=== PATIENT | female | born 1935 | race Caucasian/White ===

== ENCOUNTER 2020-04-20 21:45 | Inpatient (IN) | payer MEDICARE, OTHER, SELFPAY ==
[2020-04-20 21:46] VITALS: BP 128/68; PULSE 67; RESP 20; O2SAT 90; BMI 22.4
[2020-04-20 21:50] VITALS: PULSE 64; RESP 21; O2SAT 96
--- NOTE | 2020-04-20 21:51 | ECG_ITS ---
[facility] Test Date: 2020-04-20 Pat Name: Aleja Souza Department: Room: Gender: Female [employer]: : [id number] Requested By: Reed Sapp Order Number: [id number] Sophia MD: Lisa Zimmerman M.D. Measurements Intervals [place] Rate: 64 P: 25 [place]: 214 QRS: -10 QRSD: 92 T: 230 QT: 414 QTc: 429 Interpretive Statements SINUS RHYTHM WITH FIRST DEGREE AV BLOCK NONSPECIFIC T-WAVE ABNORMALITY Compared to ECG 03/16/2018 11:38:23 T-wave abnormality now present Sinus bradycardia no longer present Myocardial infarct finding no longer present Electronically Signed On 04-21-2020 20:30:13 CDT by Lisa Zimmerman M.D. [id number]
--- NOTE | 2020-04-20 21:51 | XR_ITS ---
WS: [id number] Portable AP upright chest, 04/20/2020 Clinical Data: sob Comparison: Portable chest, 03/16/2018. Findings: There is an opacity in the right lower lobe which may represent consolidation from pneumoni a. There is volume loss of the right lung. No nodules, masses or effusions are seen. The heart is sli ghtly enlarged. The pulmonary vascularity is not increased. No pneumothorax is seen. The aortic arch and descending aorta show calcification and tortuosity. Monitor leads on the chest wall. XR/XR chest 1V portable [id number] Impression: 1. Possible right lower lobe pneumonia and recommend repeat PA and lateral ches t in one to 2 days. 2. Cardiomegaly and atherosclerosis.
--- NOTE | 2020-04-20 21:54 | W.ED.SOB ---
Documented by User: Reed Sapp MD 04/20/20 21:55 HPI - SOB/Dyspnea General: Chief Complaint: Shortness of Breath/Dyspnea Stated Complaint: RESP DISTRESS Time Seen by Provider: 04/20/20 21:48 Source: patient and EMS Mode of arrival: EMS Limitations: no limitations History of Present Illness: HPI Narrative: 84-year-old female who is here from a local long-term. Patient had shortness of breath and was desaturating there. EMS states they arrived she was in the 70s and had some altered mental status. Patient was placed on CPAP and has been improving. Patient is able to answer my questions here but is still and quite distressed and unable to speak very many words due to her distress. She has been afebrile at long-term. She has not had a cough. No known sick contacts. Patient is a DNR. Associated symptoms: Deny abdominal pain, chest pain, fever(s), nausea or vomiting Review of Systems Const: Denies: fever(s), chills, body aches or change in appetite Eyes: Denies: blurry vision or eye discomfort ENMT: Denies: throat pain or dental pain Card: Denies: chest pain Resp: Reports: dyspnea and wheezing GI: Denies: abdominal pain, nausea, vomiting or diarrhea : Denies: dysuria Musc: Denies: neck pain or back pain Skin/Breast: Denies: rash Neuro: Denies: headache(s) Psych: Denies: depression [place]/Lymph: Denies: easy bruising All/Imm: Denies: urticaria PFSH ED PFSH: Medical History Depression DNR (do not resuscitate) Dyslipidemia History of biliary stent insertion It was removed later on Hypertension Irritable bowel syndrome Junctional rhythm Migraine ST elevation PA (STEMI) Was treated medically July 2015, Inferior wall PA TIA (transient ischemic attack) Uterine prolapse Surgical History History of hysterectomy For uterine prolapse Cystocele, rectocele Hx of cholecystectomy Family History Other CAD (coronary artery disease) Diabetes Hypertension Social History Smoking and tobacco status: never smoked Alcohol intake: never Substance/Drug Use: never Housing: Assisted Living Facility Physical Exam Const: COMMON NORMALS: patient oriented x3 GENERAL APPEARANCE: in distress HENMT: COMMON NORMALS: normocephalic and atraumatic HEAD & SCALP: normocephalic and atraumatic Eye: COMMON NORMALS: Equal, round and reactive pupils present and EOMs intact bilaterally PUPIL: Yes Equal, round and reactive pupils present Neck/C-Spine: COMMON NORMALS: full ROM and supple Chest: COMMONS NORMALS: normal inspection of the chest and normal palpation of entire chest wall Resp: EFFORT & INSPECTION: Yes tachypneic and Yes respiratory distress AUSCULTATION: wheezes Cardio: COMMON NORMALS: regular rate, regular rhythm and No murmurs present (Cardio) RATE: regular rate RHYTHM: regular rhythm GI: COMMON NORMALS: Normal to inspection, nondistended, normoactive bowel sounds present, Soft to palpation, non-tender and no masses PALPATION: Yes Soft to palpation Extremity: COMMON NORMALS: normal to inspection and full ROM Neuro: COMMON NORMALS: patient oriented x3, moves all extremities and no focal motor deficits Psych: COMMON NORMALS: mental status grossly normal, Normal thought process present and cooperative THOUGHT PROCESS: Normal thought process present Skin: COMMON NORMALS: no rashes or lesions noted and no wounds GENERAL SKIN EXAM: no rashes or lesions noted Course Vital Signs: Vital signs: Vital Signs Temperature 97.2 F L 04/21/20 02:00 Pulse Rate 63 04/21/20 02:17 Respiratory Rate 16 04/21/20 02:00 Blood Pressure 127/73 04/21/20 02:00 Pulse Oximetry 91 04/21/20 02:00 MDM - SOB/Dyspnea Lab Data: Labs: Lab Results 04/20/20 04/20/20 04/20/20 Range/Units 21:58 21:58 22:03 WBC 13.8 H (4.0-10.0) 10^3/ uL RBC 3.95 L (4.1-5.3) 10^6/u L Hgb 11.4 L (11.5-15.3) g/dL Hct 35.1 L (37.0-47.0) % MCV 88.9 (81-99) fL MCH 28.9 (28.0-34.0) pg MCHC 32.5 (30.0-36.0) g/dL RDW 14.1 (12.1-15.1) % Plt Count 243 (130-400) 10^3/c mm MPV 11.4 H (7.4-10.4) fL Neut % (Auto) 86.5 % Lymph % (Auto) 6.3 % [place] % (Auto) 6.4 % Eos % (Auto) 0.1 % Baso % (Auto) 0.4 % Neut # (Auto) 11.95 H (1.8-7.7) 10^3/u L Lymph # (Auto) 0.9 (0.8-4.8) 10^3/u L [place] # (Auto) 0.9 (0.2-0.9) 10^3/u L Eos # (Auto) 0.0 (0.0-0.8) 10^3/u L Baso # (Auto) 0.1 (0.0-0.1) 10^3/u L Nucleated RBC % (a uto) 0 % Nucleated RBCs # 0.0 /100WBC Fibrinogen (174-498) mg/dL D-Dimer (0-0.59) ug/mIFE U Specimen Type Arterial Sample Site Brachial, right ABG pH 7.36 (7.35-7.45) ABG pCO2 33.3 L (35-45) mmHg ABG pO2 69.7 L (80.0-100.0) mmH g ABG HCO3 19.0 L (22-26) mmol/L ABG Base Excess -5.6 L (-2.0-2.0) mmol/ L Rupesh Test N/a Hematocrit 35.2 L (37-47) % Hgb O2 Saturation 92.8 L (95-100) % Carboxyhemoglobin 1.0 (0.4-20.1) %THgb Methemoglobin 0.8 (0.4-1.5) % Total Hemoglobin 11.5 L (12-16) g/dL O2 Delivery Device Bipap FiO2 55.0 % Continuous Absorption Process Operator ID Harkr Sodium 135 L (136-145) mmol/L Potassium 4.4 (3.5-5.1) mmol/L Chloride 104 (98-107) mmol/L Carbon Dioxide 18 L (22-29) mmol/L Anion Gap 17.4 (5-19) BUN 26 H (8-23) mg/dL Creatinine 1.4 H (0.5-0.9) mg/dL GFR Calculation Not Reportable Glucose 260 H (65-115) mg/dL Calculated Osmolal ity 294 (285-295) mOsm/k g Calcium 8.5 (8.5-10.5) mg/dL Total Bilirubin 0.7 (0.15-1.2) mg/dL AST 14 (0-32) U/L ALT 9 (0-33) U/L Alkaline Phosphata se 85 (35-105) IU/L Troponin T Baselin e (0-10) ng/L C-Reactive Protein 29.7 H (0.0-4.9) mg/L NT-Pro-B Natriuret Pep 80756 H (0-450) pg/mL Total Protein 7.3 (6.6-8.7) g/dL Albumin 3.8 (3.5-5.2) g/dL Globulin 3.5 (1.3-4.6) g/dL SARS-CoV-2 Ag (Rap id) (Negative) 04/20/20 04/20/20 04/20/20 Range/Units 22:23 22:33 22:33 WBC (4.0-10.0) 10^3/ uL RBC (4.1-5.3) 10^6/u L Hgb (11.5-15.3) g/dL Hct (37.0-47.0) % MCV (81-99) fL MCH (28.0-34.0) pg MCHC (30.0-36.0) g/dL RDW (12.1-15.1) % Plt Count (130-400) 10^3/c mm MPV (7.4-10.4) fL Neut % (Auto) % Lymph % (Auto) % [place] % (Auto) % Eos % (Auto) % Baso % (Auto) % Neut # (Auto) (1.8-7.7) 10^3/u L Lymph # (Auto) (0.8-4.8) 10^3/u L [place] # (Auto) (0.2-0.9) 10^3/u L Eos # (Auto) (0.0-0.8) 10^3/u L Baso # (Auto) (0.0-0.1) 10^3/u L Nucleated RBC % (a uto) % Nucleated RBCs # /100WBC Fibrinogen 633 H (174-498) mg/dL D-Dimer (0-0.59) ug/mIFE U Specimen Type Sample Site ABG pH (7.35-7.45) ABG pCO2 (35-45) mmHg ABG pO2 (80.0-100.0) mmH g ABG HCO3 (22-26) mmol/L ABG Base Excess (-2.0-2.0) mmol/ L Rupesh Test Hematocrit (37-47) % Hgb O2 Saturation (95-100) % Carboxyhemoglobin (0.4-20.1) %THgb Methemoglobin (0.4-1.5) % Total Hemoglobin (12-16) g/dL O2 Delivery Device FiO2 % Continuous Absorption Process Operator ID Sodium (136-145) mmol/L Potassium (3.5-5.1) mmol/L Chloride (98-107) mmol/L Carbon Dioxide (22-29) mmol/L Anion Gap (5-19) BUN (8-23) mg/dL Creatinine (0.5-0.9) mg/dL GFR Calculation Glucose (65-115) mg/dL Calculated Osmolal ity (285-295) mOsm/k g Calcium (8.5-10.5) mg/dL Total Bilirubin (0.15-1.2) mg/dL AST (0-32) U/L ALT (0-33) U/L Alkaline Phosphata se (35-105) IU/L Troponin T Baselin e 476 H* (0-10) ng/L C-Reactive Protein (0.0-4.9) mg/L NT-Pro-B Natriuret Pep (0-450) pg/mL Total Protein (6.6-8.7) g/dL Albumin (3.5-5.2) g/dL Globulin (1.3-4.6) g/dL SARS-CoV-2 Ag (Rap id) Negative (Negative) 04/20/20 Range/Units 22:35 WBC (4.0-10.0) 10^3/ uL RBC (4.1-5.3) 10^6/u L Hgb (11.5-15.3) g/dL Hct (37.0-47.0) % MCV (81-99) fL MCH (28.0-34.0) pg MCHC (30.0-36.0) g/dL RDW (12.1-15.1) % Plt Count (130-400) 10^3/c mm MPV (7.4-10.4) fL Neut % (Auto) % Lymph % (Auto) % [place] % (Auto) % Eos % (Auto) % Baso % (Auto) % Neut # (Auto) (1.8-7.7) 10^3/u L Lymph # (Auto) (0.8-4.8) 10^3/u L [place] # (Auto) (0.2-0.9) 10^3/u L Eos # (Auto) (0.0-0.8) 10^3/u L Baso # (Auto) (0.0-0.1) 10^3/u L Nucleated RBC % (a uto) % Nucleated RBCs # /100WBC Fibrinogen (174-498) mg/dL D-Dimer 1.18 H (0-0.59) ug/mIFE U Specimen Type Sample Site ABG pH (7.35-7.45) ABG pCO2 (35-45) mmHg ABG pO2 (80.0-100.0) mmH g ABG HCO3 (22-26) mmol/L ABG Base Excess (-2.0-2.0) mmol/ L Rupesh Test Hematocrit (37-47) % Hgb O2 Saturation (95-100) % Carboxyhemoglobin (0.4-20.1) %THgb Methemoglobin (0.4-1.5) % Total Hemoglobin (12-16) g/dL O2 Delivery Device FiO2 % Continuous Absorption Process Operator ID Sodium (136-145) mmol/L Potassium (3.5-5.1) mmol/L Chloride (98-107) mmol/L Carbon Dioxide (22-29) mmol/L Anion Gap (5-19) BUN (8-23) mg/dL Creatinine (0.5-0.9) mg/dL GFR Calculation Glucose (65-115) mg/dL Calculated Osmolal ity (285-295) mOsm/k g Calcium (8.5-10.5) mg/dL Total Bilirubin (0.15-1.2) mg/dL AST (0-32) U/L ALT (0-33) U/L Alkaline Phosphata se (35-105) IU/L Troponin T Baselin e (0-10) ng/L C-Reactive Protein (0.0-4.9) mg/L NT-Pro-B Natriuret Pep (0-450) pg/mL Total Protein (6.6-8.7) g/dL Albumin (3.5-5.2) g/dL Globulin (1.3-4.6) g/dL SARS-CoV-2 Ag (Rap id) (Negative) Discharge Plan Discharge Patient Disposition: Admitted As Inpatient Admit Provider: Bertha Mauro Clinical Impression: NSTEMI (non-ST elevated myocardial infarction), CHF exacerbation, MONICA (acute kidney injury), Pulmonary vascular congestion, Acute respiratory failure with hypoxia Condition: Stable Interventions: ED Discharge Assessment Last Done: 04/21/20 02:25 ED Charges Last Done: 04/21/20 02:25 Discharge Date/Time: 04/21/20 02:29 Sign Out Sign Out Data: Patient Sign Out occurred on 04/20/20 at 22:32. Patient's care was discussed, and care was transferred from to Christine Valdez. Coding Level of Care Code ED Nurseryman Assistant for Chg Fwd Exam Comprehensive Documented by User: Christine Valdez 04/21/20 03:05 HPI - SOB/Dyspnea General: Chief Complaint: Shortness of Breath/Dyspnea Stated Complaint: RESP DISTRESS Time Seen by Provider: 04/20/20 21:48 [facility] ED PFSH: Medical History Depression DNR (do not resuscitate) Dyslipidemia History of biliary stent insertion It was removed later on Hypertension Irritable bowel syndrome Junctional rhythm Migraine ST elevation PA (STEMI) Was treated medically July 2015, Inferior wall PA TIA (transient ischemic attack) Uterine prolapse Surgical History History of hysterectomy For uterine prolapse Cystocele, rectocele Hx of cholecystectomy Family History Other CAD (coronary artery disease) Diabetes Hypertension Social History Smoking and tobacco status: never smoked Alcohol intake: never Substance/Drug Use: never Housing: Assisted Living Facility Course Vital Signs: Vital signs: Vital Signs Temperature 97.2 F L 04/21/20 02:00 Pulse Rate 63 04/21/20 02:17 Respiratory Rate 16 04/21/20 02:00 Blood Pressure 127/73 04/21/20 02:00 Pulse Oximetry 91 04/21/20 02:00 MDM - SOB/Dyspnea MDM Narrative: Medical decision making narrative: 2299 -Case inherited by me at change of shift from Dr. Sapp. Please see his note for his history, physical exam and medical decision-making notes. Patient tells me that she has had chest pain all day yesterday but today she felt better until this evening. Chest x-ray is consistent with pulmonary edema from congestive heart failure. It appears as though she may have had a NSTEMI. Patient is currently chest pain-free. I have endorsed the case to Dr. Mauro he is agreeable to admission to the stepdown unit. Lab Data: Labs: Lab Results 04/20/20 04/20/20 04/20/20 Range/Units 21:58 21:58 22:03 WBC 13.8 H (4.0-10.0) 10^3/ uL RBC 3.95 L (4.1-5.3) 10^6/u L Hgb 11.4 L (11.5-15.3) g/dL Hct 35.1 L (37.0-47.0) % MCV 88.9 (81-99) fL MCH 28.9 (28.0-34.0) pg MCHC 32.5 (30.0-36.0) g/dL RDW 14.1 (12.1-15.1) % Plt Count 243 (130-400) 10^3/c mm MPV 11.4 H (7.4-10.4) fL Neut % (Auto) 86.5 % Lymph % (Auto) 6.3 % [place] % (Auto) 6.4 % Eos % (Auto) 0.1 % Baso % (Auto) 0.4 % Neut # (Auto) 11.95 H (1.8-7.7) 10^3/u L Lymph # (Auto) 0.9 (0.8-4.8) 10^3/u L [place] # (Auto) 0.9 (0.2-0.9) 10^3/u L Eos # (Auto) 0.0 (0.0-0.8) 10^3/u L Baso # (Auto) 0.1 (0.0-0.1) 10^3/u L Nucleated RBC % (a uto) 0 % Nucleated RBCs # 0.0 /100WBC Fibrinogen (174-498) mg/dL D-Dimer (0-0.59) ug/mIFE U Specimen Type Arterial Sample Site Brachial, right ABG pH 7.36 (7.35-7.45) ABG pCO2 33.3 L (35-45) mmHg ABG pO2 69.7 L (80.0-100.0) mmH g ABG HCO3 19.0 L (22-26) mmol/L ABG Base Excess -5.6 L (-2.0-2.0) mmol/ L Rupesh Test N/a Hematocrit 35.2 L (37-47) % Hgb O2 Saturation 92.8 L (95-100) % Carboxyhemoglobin 1.0 (0.4-20.1) %THgb Methemoglobin 0.8 (0.4-1.5) % Total Hemoglobin 11.5 L (12-16) g/dL O2 Delivery Device Bipap FiO2 55.0 % Continuous Absorption Process Operator ID Harkr Sodium 135 L (136-145) mmol/L Potassium 4.4 (3.5-5.1) mmol/L Chloride 104 (98-107) mmol/L Carbon Dioxide 18 L (22-29) mmol/L Anion Gap 17.4 (5-19) BUN 26 H (8-23) mg/dL Creatinine 1.4 H (0.5-0.9) mg/dL GFR Calculation Not Reportable Glucose 260 H (65-115) mg/dL Calculated Osmolal ity 294 (285-295) mOsm/k g Calcium 8.5 (8.5-10.5) mg/dL Total Bilirubin 0.7 (0.15-1.2) mg/dL AST 14 (0-32) U/L ALT 9 (0-33) U/L Alkaline Phosphata se 85 (35-105) IU/L Troponin T Baselin e (0-10) ng/L C-Reactive Protein 29.7 H (0.0-4.9) mg/L NT-Pro-B Natriuret Pep 65367 H (0-450) pg/mL Total Protein 7.3 (6.6-8.7) g/dL Albumin 3.8 (3.5-5.2) g/dL Globulin 3.5 (1.3-4.6) g/dL SARS-CoV-2 Ag (Rap id) (Negative) 04/20/20 04/20/20 04/20/20 Range/Units 22:23 22:33 22:33 WBC (4.0-10.0) 10^3/ uL RBC (4.1-5.3) 10^6/u L Hgb (11.5-15.3) g/dL Hct (37.0-47.0) % MCV (81-99) fL MCH (28.0-34.0) pg MCHC (30.0-36.0) g/dL RDW (12.1-15.1) % Plt Count (130-400) 10^3/c mm MPV (7.4-10.4) fL Neut % (Auto) % Lymph % (Auto) % [place] % (Auto) % Eos % (Auto) % Baso % (Auto) % Neut # (Auto) (1.8-7.7) 10^3/u L Lymph # (Auto) (0.8-4.8) 10^3/u L [place] # (Auto) (0.2-0.9) 10^3/u L Eos # (Auto) (0.0-0.8) 10^3/u L Baso # (Auto) (0.0-0.1) 10^3/u L Nucleated RBC % (a uto) % Nucleated RBCs # /100WBC Fibrinogen 633 H (174-498) mg/dL D-Dimer (0-0.59) ug/mIFE U Specimen Type Sample Site ABG pH (7.35-7.45) ABG pCO2 (35-45) mmHg ABG pO2 (80.0-100.0) mmH g ABG HCO3 (22-26) mmol/L ABG Base Excess (-2.0-2.0) mmol/ L Rupesh Test Hematocrit (37-47) % Hgb O2 Saturation (95-100) % Carboxyhemoglobin (0.4-20.1) %THgb Methemoglobin (0.4-1.5) % Total Hemoglobin (12-16) g/dL O2 Delivery Device FiO2 % Continuous Absorption Process Operator ID Sodium (136-145) mmol/L Potassium (3.5-5.1) mmol/L Chloride (98-107) mmol/L Carbon Dioxide (22-29) mmol/L Anion Gap (5-19) BUN (8-23) mg/dL Creatinine (0.5-0.9) mg/dL GFR Calculation Glucose (65-115) mg/dL Calculated Osmolal ity (285-295) mOsm/k g Calcium (8.5-10.5) mg/dL Total Bilirubin (0.15-1.2) mg/dL AST (0-32) U/L ALT (0-33) U/L Alkaline Phosphata se (35-105) IU/L Troponin T Baselin e 476 H* (0-10) ng/L C-Reactive Protein (0.0-4.9) mg/L NT-Pro-B Natriuret Pep (0-450) pg/mL Total Protein (6.6-8.7) g/dL Albumin (3.5-5.2) g/dL Globulin (1.3-4.6) g/dL SARS-CoV-2 Ag (Rap id) Negative (Negative) 04/20/20 Range/Units 22:35 WBC (4.0-10.0) 10^3/ uL RBC (4.1-5.3) 10^6/u L Hgb (11.5-15.3) g/dL Hct (37.0-47.0) % MCV (81-99) fL MCH (28.0-34.0) pg MCHC (30.0-36.0) g/dL RDW (12.1-15.1) % Plt Count (130-400) 10^3/c mm MPV (7.4-10.4) fL Neut % (Auto) % Lymph % (Auto) % [place] % (Auto) % Eos % (Auto) % Baso % (Auto) % Neut # (Auto) (1.8-7.7) 10^3/u L Lymph # (Auto) (0.8-4.8) 10^3/u L [place] # (Auto) (0.2-0.9) 10^3/u L Eos # (Auto) (0.0-0.8) 10^3/u L Baso # (Auto) (0.0-0.1) 10^3/u L Nucleated RBC % (a uto) % Nucleated RBCs # /100WBC Fibrinogen (174-498) mg/dL D-Dimer 1.18 H (0-0.59) ug/mIFE U Specimen Type Sample Site ABG pH (7.35-7.45) ABG pCO2 (35-45) mmHg ABG pO2 (80.0-100.0) mmH g ABG HCO3 (22-26) mmol/L ABG Base Excess (-2.0-2.0) mmol/ L Rupesh Test Hematocrit (37-47) % Hgb O2 Saturation (95-100) % Carboxyhemoglobin (0.4-20.1) %THgb Methemoglobin (0.4-1.5) % Total Hemoglobin (12-16) g/dL O2 Delivery Device FiO2 % Continuous Absorption Process Operator ID Sodium (136-145) mmol/L Potassium (3.5-5.1) mmol/L Chloride (98-107) mmol/L Carbon Dioxide (22-29) mmol/L Anion Gap (5-19) BUN (8-23) mg/dL Creatinine (0.5-0.9) mg/dL GFR Calculation Glucose (65-115) mg/dL Calculated Osmolal ity (285-295) mOsm/k g Calcium (8.5-10.5) mg/dL Total Bilirubin (0.15-1.2) mg/dL AST (0-32) U/L ALT (0-33) U/L Alkaline Phosphata se (35-105) IU/L Troponin T Baselin e (0-10) ng/L C-Reactive Protein (0.0-4.9) mg/L NT-Pro-B Natriuret Pep (0-450) pg/mL Total Protein (6.6-8.7) g/dL Albumin (3.5-5.2) g/dL Globulin (1.3-4.6) g/dL SARS-CoV-2 Ag (Rap id) (Negative) Imaging Data^: CXR: Attestation: I personally reviewed and interpreted this imaging study as follows: My impression: Patient rotated. Cardiomegaly. Probable bilateral lower lobe infiltrates right greater than left. EKG Data^: EKG 1: Attestation: I personally reviewed and interpreted this EKG as follows: EKG Interpretation Date: 04/20/20 EKG interpretation time: 22:18 Interpretation: Normal sinus rhythm at 64 beats a minute, first-degree AV block, normal QTC. Significant wandering baseline artifact. T wave inversions V1 through V4 with nonspecific findings in V5. EKG 2: Attestation: I personally reviewed and interpreted this EKG as follows: EKG Interpretation Date: 04/20/20 EKG interpretation time: 23:29 Interpretation: Sinus bradycardia 58 beats a minute, T wave inversions in V2 through V4 with subtle ST depression in V4 and V5. Discharge Plan Discharge Patient Disposition: Admitted As Inpatient Admit Provider: Bertha Mauro Clinical Impression: NSTEMI (non-ST elevated myocardial infarction), CHF exacerbation, MONICA (acute kidney injury), Pulmonary vascular congestion, Acute respiratory failure with hypoxia Condition: Stable Interventions: ED Discharge Assessment Last Done: 04/21/20 02:25 ED Charges Last Done: 04/21/20 02:25 Discharge Date/Time: 04/21/20 02:29 Sign Out Sign Out Data: Patient Sign Out occurred on 04/20/20 at 22:32. Patient's care was discussed, and care was transferred from to [facility]. Coding Level of Care Code ED Nurseryman Assistant for Chg Fwd Exam Comprehensive
[2020-04-20 22:06] VITALS: BP 120/71; PULSE 65; RESP 20; TEMP 36.6; O2SAT 97
[2020-04-20 22:09] LABS: Basophils # 0.1 10^3/uL (0.0-0.1); Basophils % 0.4 %; Eosinophils % 0.1 %; Hematocrit 35.1 % (37.0-47.0); Hemoglobin 11.4 g/dL (11.5-15.3); Lymphocytes # 0.9 10^3/uL (0.8-4.8); Lymphocytes % 6.3 %; Mean Corpuscular HGB Conc 32.5 g/dL (30.0-36.0); Mean Corpuscular Hemoglobin 28.9 pg (28.0-34.0); Mean Corpuscular Volume 88.9 fL (81-99); Mean Platelet Volume 11.4 fL (7.4-10.4); Monocytes # 0.9 10^3/uL (0.2-0.9); Monocytes % 6.4 %; Neutrophils # 11.95 10^3/uL (1.8-7.7); Neutrophils % 86.5 %; Nucleated Red Blood Cells % 0 %; Platelet Count 243 10^3/cmm (130-400); Red Blood Count 3.95 10^6/uL (4.1-5.3); Red Cell Distribution Width 14.1 % (12.1-15.1); White Blood Count 13.8 10^3/uL (4.0-10.0)
[2020-04-20 22:13] LABS: ABG PCO2 33.3 mmHg (35-45); ABG PH Result 7.36 (7.35-7.45); Arterial Blood Gas Hematocrit 35.2 % (37-47); Base Excess ABG -5.6 mmol/L (-2.0-2.0); Blood Gas Sample Type Arterial; HGB O2 Sat 92.8 % (95-100); Methemoglobin 0.8 % (0.4-1.5); PO2 ABG 69.7 mmHg (80.0-100.0); Total Hemoglobin 11.5 g/dL (12-16)
[2020-04-20 22:14] LABS: Blood Gas Operator Identificat HARKR; Blood Gas Sample Site Brachial, right; Oxygen Device BIPAP
--- NOTE | 2020-04-20 22:17 | ECG_ITS ---
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 Measurements Intervals [place] Rate: 58 P: 10 NE: 196 QRS: -3 QRSD: 91 T: -60 QT: 506 QTc: 497 Interpretive Statements SINUS BRADYCARDIA ST DEVIATION AND MODERATE T-WAVE ABNORMALITY, CONSIDER ANTERIOR ISCHEMIA [-0.1+ mV T WAVE IN V3/V4] Compared to ECG 04/20/2020 22:18:54 Possible ischemia now present Sinus rhythm no longer present First degree AV block no longer present T-wave abnormality still present Electronically Signed On 04-21-2020 17:12:17 CDT by Lisa Zimmerman M.D. [id number]
[2020-04-20 22:31] VITALS: BP 119/70; PULSE 58; RESP 18; O2SAT 96
[2020-04-20 22:35] LABS: Alanine Aminotransferase 9 U/L (0-33); Albumin Level 3.8 g/dL (3.5-5.2); Alkaline Phosphatase 85 IU/L (35-105); Blood Urea Nitrogen 26 mg/dL (8-23); C Reactive Protein 29.7 mg/L (0.0-4.9); Calcium 8.5 mg/dL (8.5-10.5); Carbon Dioxide 18 mmol/L (22-29); Chloride 104 mmol/L (98-107); Globulin 3.5 g/dL (1.3-4.6); Glucose 260 mg/dL (65-115); Osmolality Calculated 294 mOsm/kg (285-295); Sodium 135 mmol/L (136-145); Total Bilirubin 0.7 mg/dL (0.15-1.2); Total Protein 7.3 g/dL (6.6-8.7)
[2020-04-20 22:42] LABS: Anion Gap 17.4 (5-19); Aspartate Amino Transferase 14 U/L (0-32); Potassium 4.4 mmol/L (3.5-5.1)
[2020-04-20 22:57] LABS: Troponin(5th) Baseline 476 ng/L (0-10)
[2020-04-20 23:01] LABS: Fibrinogen 633 mg/dL (174-498)
[2020-04-20] MEDS: dexamethasone 10 mg/mL INJ IVP (23:09)
[2020-04-20 23:10] LABS: D Dimer 1.18 ug/mIFEU (0-0.59)
[2020-04-20 23:12] LABS: SARS Covid-2 Antigen Negative (Negative)
[2020-04-20] MEDS: piperacillin-tazobactam 3.375 GM in sodium chloride 0.9% (plus) 50 ML IV (23:31)
[2020-04-20] MEDS: FUROsemide 10 mg/mL SDV 4mL 40 MG IVP (23:31)
[2020-04-20 23:33] VITALS: PULSE 58; RESP 22; O2SAT 95
--- NOTE | 2020-04-20 23:34 | PC.NURSE ---
pt is more alert and trying to talk after being on the bipap. MD notified. pt assisted with removing her false teeth at this time.
--- NOTE | 2020-04-20 23:36 | PM.HP ---
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 Patient is from assisted living, [facility], stating that she has been having chest pain for 1 day, she is describing substernal chest discomfort radiating towards her both arms, associated with shortness of breath. She is endorsing orthopnea, PND, last night her breathing got worse, she did not notice any fever, vomiting, dysuria, endorsing diarrhea. EMS reported altered mental status and hypoxia, on arrival to the ED she was on CPAP saturating well, diagnostic work-up revealed bradycardia, acute CHF exacerbation due to NSTEMI, COVID antigen negative Compensated pH, blood gas was taken while she was on 55% FiO2 BiPAP, MONICA, baseline troponin IV 176 with T wave inversion anterolateral leads No ST elevation VA, at the time my evaluation systolic blood pressure 124 mmHg, saturating 94% on BiPAP 30% FiO2 settings 16/8 respiratory rate 12, patient is much more alert and awake able to give me above-mentioned details. Review of Systems Const: Reports: chills, body aches, fatigue and malaise; Denies: fever(s) Eyes: Denies: change in vision ENMT: Denies: throat pain Card: Reports: chest pain, dyspnea on exertion and orthopnea Resp: Reports: dyspnea and non-productive cough GI: Reports: diarrhea; Denies: abdominal pain : Denies: flank pain Musc: Denies: neck pain Skin/Breast: Denies: rash Neuro: Reports: confusion Psych: Reports: memory loss Endo: Denies: polyuria Rancho/Lymph: Denies: easy bruising All/Imm: Denies: urticaria Medications/Allergies Allergies Allergy/AdvReac Type Severity Reaction Status Date / Time cefaclor [From Ceclor] Allergy Unknown Verified 04/20/20 21:58 labetalol [From Trandate] Allergy Unknown Verified 04/20/20 21:58 lisinopril [From Prinivil] Allergy Unknown Verified 04/20/20 21:58 ofloxacin [From Floxin] Allergy Unknown Verified 04/20/20 21:58 sulfadiazine Allergy Unknown Verified 04/20/20 21:58 tramadol Allergy Unknown Verified 04/20/20 21:58 PFSH Acute PFSH: Medical History Depression DNR (do not resuscitate) Dyslipidemia History of biliary stent insertion It was removed later on Hypertension Irritable bowel syndrome Junctional rhythm Migraine ST elevation VA (STEMI) Was treated medically July 2015, Inferior wall VA TIA (transient ischemic attack) Uterine prolapse Surgical History History of hysterectomy For uterine prolapse Cystocele, rectocele Hx of cholecystectomy Family History Other CAD (coronary artery disease) Diabetes Hypertension Social History Smoking and tobacco status: never smoked Alcohol intake: never Substance/Drug Use: never Housing: Assisted Living Facility Vitals/I&O/Wt Last Vital Signs Temp 97.9 F 04/20/20 22:06 Pulse 58 L 04/20/20 23:33 Resp 22 H 04/20/20 23:33 BP 119/70 04/20/20 22:31 Pulse Ox 95 04/20/20 23:33 Weight last 48 hrs Weight 61.235 kg Physical Exam Narrative: EXAM NARRATIVE: Very pleasant elderly female Currently saturating well 94% on BiPAP settings 16/8 FiO2 30% respiratory rate 12 Good tidal volume around 500s without any leakage Patient saturation dropped to 88% when I removed BiPAP to interview her She is awake alert oriented x3 S1, S2 active signs of congestive heart failure Bilateral breath sounds with active rhonchi and crackles at the bases Abdominal breathing Abdomen soft, bowel sounds very sluggish, nontender Lower extremity 1+ edema bilateral lower extremities no gangrene or ulcer She is awake alert oriented x3 GCS 15 Appropriate mood and affect at the time of my evaluation Sinus bradycardia on telemetry heart rate ranging between 40s to 60s with normal blood pressure, currently patient is not complaining of chest pain shortness of breath no signs of confusion Data : 04/20/20 21:58 04/20/20 21:58 A&P Assessment and plan (1) NSTEMI (non-ST elevated myocardial infarction): Status: Acute (2) CHF exacerbation: Status: Acute (3) MONICA (acute kidney injury): Status: Acute (4) Pulmonary vascular congestion: Status: Acute (5) Acute respiratory failure with hypoxia: Status: Acute (6) Bradycardia: Status: Acute Additional A&P Information Acute CHF exacerbation due to acute coronary syndrome Clinical signs of congestive heart failure with high BNP, I do not hear a loud murmur Sinus bradycardia with normal hemodynamic Loading dose of aspirin Plavix initiated Start heparin drip No ST elevation evident, T wave inversion in anterolateral leads, previous history of inferior wall VA which was managed medically I would not initiate lisinopril at this point because of creatinine 1.4, start metoprolol succinate tomorrow would avoid today because of acute CHF and bradycardia Patient carries history of preserved ejection fraction diastolic congestive heart failure Echo in the morning We will consult cardiology, 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 [employer] Acute kidney injury likely cardiorenal Anticipating improvement with diuresis Hold lisinopril for now Acute hypoxic respiratory failure due to CHF exacerbation Currently requiring BiPAP settings 16/8 respiratory rate 12, FiO2 30%, tidal volume 500 Patient is a DNI: Discussed goals of care in the ER No signs of pneumonia, x-ray consistent with vascular congestion and pleural effusion (COVID antigen negative Sinus bradycardia Normal hemodynamics, initiate AV piyush blocking agent after 24 hours, previous history of inferior wall VA, monitor in [facility] Patient is currently not complaining of chest pain, shortness of breath, no active signs of confusion No active signs of cardiac shock Will monitor if she would require dopamine gtt Recurrent history of TIA in the past Patient is not a diabetic, has used dual antiplatelet therapy in the past Goals of care: DNR/DNI Cardiac diet DVT prophylaxis not indicated due to heparin GTT Attestations Medical Necessity Statement*: Anticipating stay in the hospital course more than 2 midnights continued management for non-ST segment elevation VA due to ACS Time Spent in Patient Care: (>than 50% of time spent in counselling and/or direct pt care on unit). 50mins Coding Level of Care Code Acute Environmental Monitoring Specialist for g Fwd Diagnoses NSTEMI (non-ST elevated myocardial infarction) I21.4 CHF exacerbation I50.9 MONICA (acute kidney injury) N17.9 Pulmonary vascular congestion R09.89 Acute respiratory failure with hypoxia J96.01 Bradycardia R00.1
[2020-04-21] VITALS (18 sets, daily range): BP systolic 100–140; BP diastolic 63–83; PULSE 59–86; RESP 16–37; TEMP 36.2–36.9; O2SAT 62–99
--- NOTE | 2020-04-21 00:17 | ECG_ITS ---
[facility] Test Date: 2020-04-21 Pat Name: Aleja Souza Department: Room: 105 Gender: Female Patient Services Representative: : 1935 Requested By: Christine Almaraz Order Number: [id number] Sophia MD: Lisa Zimmerman M.D. Measurements Intervals [place] Rate: 65 P: 50 LA: 234 QRS: -11 QRSD: 90 T: -41 QT: 452 QTc: 470 Interpretive Statements SINUS RHYTHM WITH FIRST DEGREE AV BLOCK WITH OCCASIONAL ECTOPIC PREMATURE COMPLEXES ST DEVIATION AND MODERATE T-WAVE ABNORMALITY, CONSIDER ANTERIOR ISCHEMIA [-0.1+ mV T WAVE IN V3/V4] Compared to ECG 04/20/2020 23:29:15 First degree AV block now present Sinus bradycardia no longer present T-wave abnormality still present Possible ischemia still present Electronically Signed On 04-21-2020 17:16:10 CDT by Lisa Zimmerman M.D. [email or web address] [id number]
[2020-04-21] MEDS: aspirin 325 mg Tablet PO (00:20)
[2020-04-21 01:40] LABS: Troponin 5 2HR 471.5 ng/L (0-10); Troponin 5 2HR Delta -4.5 ABS# (0-10)
--- NOTE | 2020-04-21 02:12 | USCV_ITS ---
Kimifabian Aleja Age: 84 Gender: F : 1935 Exam Date: 04/21/2020 05:57 Ordering Phys: Bertha Mauro MD Technologist: Venessa Goode [place] [facility] [place]: NSTEMI [place] BP: 100 / 63 HR: 66 Rhythm: Sinus Technical Quality: Adequate MEASUREMENTS (Male / Female) Normal Values 2D ECHO LV Diastolic Diameter PLAX 5.2 cm 4.2 - 5.9 / 3.9 - 5.3 cm LV Systolic Diameter PLAX 3.7 cm IVS Diastolic Thickness 1.0 cm 0.6 - 1.0 / 0.6 - 0.9 cm IVS Systolic Thickness 1.5 cm LVPW Diastolic Thickness 1.3 cm 0.6 - 1.0 / 0.6 - 0.9 cm LVPW Systolic Thickness 1.3 cm LVOT Diameter 2.0 cm LV Ejection Fraction 2D Teich 53.9 % LV Ejection Fraction MOD 2C 29.0 % LV Ejection Fraction 2C AL 28.5 % LA Diameter 4.8 cm LA Width 3.0 cm LA Height 4.6 cm RA Width 3.2 cm RA Height 4.6 cm Aorta at Sinotubular Diameter 3.6 cm M-MODE LV Diastolic Diameter MM 5.3 cm 4.2 - 5.9 / 3.9 - 5.3 cm LV Systolic Diameter MM 4.7 cm LV Ejection Fraction MM Teich 23.6 % IVS Diastolic Thickness MM 1.1 cm 0.6 - 1.0 / 0.6 - 0.9 cm IVS Systolic Thickness MM 1.6 cm LVPW Diastolic Thickness MM 1.7 cm 0.6 - 1.0 / 0.6 - 0.9 cm LVPW Systolic Thickness MM 1.4 cm RV Diastolic Diameter MM 1.4 cm Aortic Annulus Diameter 3.1 cm LA Ao Ratio MM 1.5 MV E Point Septal Separation 1.7 cm DOPPLER AV Peak Velocity 131.0 cm/s LVOT Peak Velocity 69.0 cm/s AV Area Cont Eq vti 1.9 cm squared AV Area Cont Eq pk 1.7 cm squared MV Area PHT 5.0 cm squared Mitral E to A Ratio 1.1 MV E' Velocity 6.0 cm/s Mitral E to MV E' Ratio 17.8 Mitral E to LV E' Lateral Ratio 16.4 Mitral E to LV E' Septal Ratio 19.5 TR Peak Velocity 265.4 cm/s TR Peak Gradient 28.2 mmHg TR Mean Velocity 177.0 cm/s TR Mean Gradient 15.3 mmHg TR Velocity Time Integral 65.6 cm TV Peak E Velocity 70.0 cm/s Right Atrial Pressure 3.0 mmHg Pulmonary Artery Systolic Pressu 31.2 mmHg PV Peak Velocity 52.0 cm/s RV Acceleration Time 0.1 s RV Ejection Time 0.4 s RV AcT/ET 0.4 FINDINGS Left Ventricle Mildly dilated LV. LV systolic function is severely reduced with ejection fraction of 20 to 25%. Severe global hypokinesis is present with akinetic anteroseptal, inferoseptal and apical pimentel. Normal left ventricular wall thickness. Grade 2 diastolic dysfunction is present with elevated filling pressures. Right Ventricle The right ventricle is normal in size and function. Right Atrium The right atrium is normal in size. Left Atrium The left atrium is normal in size. Mitral Valve Structurally normal mitral valve without significant stenosis or prolapse. There is no mitral regurgitation. Aortic Valve Structurally normal aortic valve without significant sclerosis or stenosis. There is mild aortic regurgitation. Tricuspid Valve Structurally normal tricuspid valve without significant stenosis or regurgitation. RVSP is 35 to 40 mmHg. Mild pulmonary hypertension is present. Pulmonic Valve Structurally normal pulmonic valve without significant stenosis. There is no pulmonic regurgitation. Pericardium Small pericardial effusion is present. Aorta Normal ascending aorta dimension. CONCLUSIONS LV systolic function is severely reduced with EF of 20 to 25%. Above-mentioned regional wall motion abnormalities are seen. Grade 2 diastolic dysfunction is present. Mild pulmonary hypertension is noted. Aortic regurgitation is present. Compared to prior echo from 2017, EF is severely reduced now with new regional wall motion abnormalities. Guille Gonzalez MD (Electronically Signed) Final Date: 21 April 2020 09:36 S
[2020-04-21 02:40] LABS: Partial Thromboplastin Time 25.7 SECONDS (23.9-36.7)
[2020-04-21] MEDS: heparin drip 25,000 UNIT/500 ML PREMIX 20 UNIT IV (02:52)
[2020-04-21] MEDS: clopidogrel 300 mg Tablet PO (02:52)
[2020-04-21] MEDS: heparin 5,000 unit/mL INJ 1 mL IV (02:52)
--- NOTE | 2020-04-21 03:18 | PC.NURSE ---
Patient arrived to the floor from the ED after report was received via phone. Patient is alert and oriented and was able to ambulate to bedside commode well with one assist. Patient has been oriented to her room and has call light within reach. Patient does not complain of any pain at this time. Patient was placed on Bipap by RT upon arrival to room. Will monitor.
--- NOTE | 2020-04-21 04:17 | ECG_ITS ---
[facility] Test Date: 2020-04-21 Pat Name: Aleja Souza Department: Room: 105 Gender: Female Child Therapist: : 1935 Requested By: Christine Almaraz Order Number: [id number] Sophia MD: Lisa Zimmerman M.D. Measurements Intervals [place] Rate: 64 P: 60 MS: 212 QRS: 52 QRSD: 92 T: 0 QT: 450 QTc: 465 Interpretive Statements SINUS RHYTHM WITH FIRST DEGREE AV BLOCK WITH OCCASIONAL VENTRICULAR PREMATURE COMPLEXES ST DEVIATION AND MODERATE T-WAVE ABNORMALITY, CONSIDER ANTEROLATERAL ISCHEMIA [-0.1+ mV T WAVE IN V3-V6] Compared to ECG 04/21/2020 02:04:44 Ventricular premature complex(es) now present T-wave abnormality still present Possible ischemia still present Electronically Signed On 04-21-2020 20:36:07 CDT by Lisa Zimmerman M.D. [email or web address] [id number]
[2020-04-21 05:08] LABS: Basophils % 0.3 %; Hematocrit 31.5 % (37.0-47.0); Hemoglobin 10.3 g/dL (11.5-15.3); Lymphocytes # 0.7 10^3/uL (0.8-4.8); Lymphocytes % 8.6 %; Mean Corpuscular HGB Conc 32.7 g/dL (30.0-36.0); Mean Corpuscular Hemoglobin 28.9 pg (28.0-34.0); Mean Corpuscular Volume 88.5 fL (81-99); Mean Platelet Volume 11.5 fL (7.4-10.4); Monocytes # 0.1 10^3/uL (0.2-0.9); Monocytes % 1.7 %; Neutrophils # 7.02 10^3/uL (1.8-7.7); Neutrophils % 89.1 %; Nucleated Red Blood Cells % 0 %; Platelet Count 233 10^3/cmm (130-400); Red Blood Count 3.56 10^6/uL (4.1-5.3); Red Cell Distribution Width 14.2 % (12.1-15.1); White Blood Count 7.9 10^3/uL (4.0-10.0)
[2020-04-21 05:20] LABS: Anion Gap 16.6 (5-19); Blood Urea Nitrogen 26 mg/dL (8-23); Calcium 9.1 mg/dL (8.5-10.5); Carbon Dioxide 19 mmol/L (22-29); Chloride 107 mmol/L (98-107); Glucose 207 mg/dL (65-115); Osmolality Calculated 299 mOsm/kg (285-295); Potassium 3.6 mmol/L (3.5-5.1); Sodium 139 mmol/L (136-145)
[2020-04-21 05:24] LABS: Troponin 5 6HR 459.7 ng/L (0-10); Troponin 5 6HR Delta -16.3 ng/L (0-12)
[2020-04-21 06:07] LABS: Thyroid Stimulating Hormone 1.63 uIU/mL (0.27-4.20)
--- NOTE | 2020-04-21 09:08 | P.CONIM_ITS ---
Providers/Reason For Consult Consulting Physican/Specialty*: Dr. Zimmerman, cardiology Reason for Consult*: Chest pain elevated troponin Attending Physician: Jacky Israel MD Primary Care Provider: Joe Collado MD History of Present Illness History of Present Illness Aleja Souza is a 84 year old female who presented with chest pain and decompensated CHF. She has previously been seen by Dr. Giang in July 2015 for STEMI alert and was noted to have sinus bradycardia with Q waves in lead II, III, aVF along with ST depression in lead V1 through V3. Her main complaint at that time was inability to speak without any chest pain. Given evidence of complete inferior wall [place] and no chest pain the decision was made to manage her medically she never had a follow-up with cardiology as an outpatient. She has history of hypertension, gastroesophageal reflux disease, anxiety dysli pidemia multiple TIAs chronic headache, chronic pain and chronic fatigue. She is not great historian and states that she had some chest discomfort along with SOB yesterday. She is at OR and was here for further evaluation. Her son Rupesh states she was not doing well last Saturday but her vitals were stable. Baseline troponin T of 476 that decreased to 472 and at 6 hours of 460. NT proBNP of 33,907. SARS-CoV-2 rapid antigen test was negative and COVID-19 PCR is pending. Creatinine on arrival was 1.4. Previous creatinine in February 2018 1.1-1.2.normal liver panel and TSH. Chest x-ray showed pulmonary congestion and possible right lower lobe pneumonia. She received Zosyn, Lasix 40 mg IV x1, Plavix 300 mg and was started on heparin drip. Previous EKG on 16 March 2018 with sinus bradycardia with first-degree AV block. Old inferior wall myocardial infarction and anterolateral myocardial infarction of indeterminate age with QS complexes V3 to V6 along with T wave inversions. EKG showed sinus rhythm with first-degree AV block with occasional PVCs. ST depression and T wave inversion noted I, V2 to V4. On subsequent EKG T wave inversion extended to V5 and V6 as well. Review of Systems Const: Denies: fever(s), chills, change in appetite, fatigue or malaise ENMT: Denies: bleeding gums, nasal congestion, epistaxis or post nasal drip Card: Reports: chest pain; Denies: palpitations, irregular heart rhythm, edema, lightheadedness, syncope, orthopnea or leg pain with exertion Resp: Reports: dyspnea; Denies: productive cough, wheezing or hemoptysis GI: Denies: abdominal pain, nausea, vomiting, hematemesis, diarrhea, constipation, hematochezia or melena : Denies: difficulty voiding, dysuria, oliguria or hematuria Musc: Denies: back pain or extremity swelling Skin/Breast: Denies: rash or erythema Neuro: Denies: numbness in extremities, weakness in extremities, lack of coordination, difficulty walking, dizziness, vertigo or confusion Psych: Denies: anxiety, depression or irritability Endo: Denies: tired all the time or cold intolerance Rancho/Lymph: Denies: easy bruising, easy bleeding, petechiae or purpura All/Imm: Denies: throat swelling, tongue swelling or acute wheezing Meds/Allergies Home Medications and Allergies Home Medications Medication Instructions Recorded Confirmed Last Taken Type acetaminophen [Tylenol Extra 500 mg PO Q6H PRN 04/21/20 04/21/20 Unknown History Strength] alprazolam [Xanax] 0.25 mg PO BID PRN 04/21/20 04/21/20 Unknown History alum-mag hydroxide-simeth [Antacid] 5 ml PO Q6H PRN 04/21/20 04/21/20 Unknown History amlodipine 5 mg PO BID 04/21/20 04/21/20 Unknown History aspirin 81 mg PO DAILY 04/21/20 04/21/20 Unknown History bisacodyl [Dulcolax (bisacodyl)] 10 mg MT DAILY PRN 04/21/20 04/21/20 Unknown History bismuth subsalicylate 524 mg PO Q4H PRN 04/21/20 04/21/20 Unknown History [Pepto-Bismol] carvedilol 25 mg PO BID 04/21/20 04/21/20 Unknown History cyclobenzaprine 5 mg PO TID PRN 04/21/20 04/21/20 Unknown History fluticasone propionate [Flonase 1 spray INTRANASAL DAILY PRN 04/21/20 04/21/20 Unknown History Allergy Relief] magnesium hydroxide [Milk of 400 mg PO DAILY PRN 04/21/20 04/21/20 Unknown History Magnesia] nystatin 1 applic TOPICAL BID PRN 04/21/20 04/21/20 Unknown History ondansetron HCl [Zofran] 2 mg PO BID PRN 04/21/20 04/21/20 Unknown History pantoprazole [Protonix] 40 mg PO DAILY 04/21/20 04/21/20 Unknown History paroxetine HCl 20 mg PO DAILY 04/21/20 04/21/20 Unknown History polyethylene glycol 3350 [Miralax] 17 g PO DAILY PRN 04/21/20 04/21/20 Unknown History simvastatin 20 mg PO DAILY 04/21/20 04/21/20 Unknown History Allergies Allergy/AdvReac Type Severity Reaction Status Date / Time cefaclor [From Ceclor] Allergy Unknown Verified 04/20/20 21:58 labetalol [From Trandate] Allergy Unknown Verified 04/20/20 21:58 lisinopril [From Prinivil] Allergy Unknown Verified 04/20/20 21:58 ofloxacin [From Floxin] Allergy Unknown Verified 04/20/20 21:58 sulfadiazine Allergy Unknown Verified 04/20/20 21:58 tramadol Allergy Unknown Verified 04/20/20 21:58 Current Medications Current Medications Generic Name Dose Route Start Last Admin Trade Name Freq PRN Reason Stop Dose Admin Heparin Sodium (Beef Lung) 0 unit 04/21/20 02:12 04/21/20 02:52 Heparin IV 3,500 unit PRN PRN Administration Heparin weight-base protocol Protocol Heparin Sodium/Sodium Chloride 25,000 unit in 500 mls @ 0 mls/hr 04/21/20 02:12 04/21/20 02:52 Heparin Drip IV 16.33 unit/kg/hr .Q0M GRANT 20 mls/hr Administration Protocol Per Protocol PFSH Acute PFSH: Medical History Depression DNR (do not resuscitate) Dyslipidemia History of biliary stent insertion It was removed later on Hypertension Irritable bowel syndrome Junctional rhythm Migraine ST elevation [place] (STEMI) Was treated medically July 2015, Inferior wall [place] TIA (transient ischemic attack) Uterine prolapse Surgical History History of hysterectomy For uterine prolapse Cystocele, rectocele Hx of cholecystectomy Family History Other CAD (coronary artery disease) Diabetes Hypertension Social History Smoking and tobacco status: never smoked Alcohol intake: never Substance/Drug Use: never Housing: Assisted Living Facility Vitals/I&O/Wt Last Vital Signs Temp 98 F 04/21/20 04:44 Pulse 67 04/21/20 04:49 Resp 19 H 04/21/20 04:49 BP 100/63 04/21/20 04:44 Pulse Ox 93 04/21/20 04:49 04/20/20 04/21/20 04/21/20 22:59 06:59 14:59 Intake Total 100 / 100 Balance 100 / 100 Weight last 48 hrs Weight 153 lb 4.8 oz Weight 135 lb Physical Exam Const: COMMON NORMALS: no acute distress and alert GENERAL APPEARANCE: cooperative, comfortable, well kempt and well hydrated HENMT: COMMON NORMALS: normocephalic, atraumatic, hearing grossly normal bilaterally, external ears normal, Normal external nose present and moist oral mucous membranes HEAD & SCALP: normocephalic and atraumatic FACE & SINUS: normal facial exam; no edema NOSE: Normal external nose present; no Epistaxis present EXTERNAL EAR: Yes external ears normal TEETH & GINGIVA: Yes dentures and Yes edentulous THROAT: tonsils normal Eye: COMMON NORMALS: Equal, round and reactive pupils present, EOMs intact bilaterally, conjunctivae normal and no scleral icterus GENERAL EYE: appearance normal, both eyes and all related structures ALIGNMENT: Yes alignment normal PERIORBITAL: periorbital findings normal EYELID: eyelids normal CONJUNCTIVA: Yes conjunctivae normal SCLERA: sclerae normal PUPIL: Yes Equal, round and reactive pupils present Neck/C-Spine: COMMON NORMALS: no lymphadenopathy, supple, no JVD and Thyroid normal GENERAL: Yes normal visual inspection, Yes trachea midline and No Mass present (neck) THYROID: Thyroid normal CAROTIDS: Yes normal carotid upstroke CERVICAL SPINE: Yes cervical ROM normal Lymph: LYMPHATIC: no lymphadenopathy noted Chest: COMMONS NORMALS: normal inspection of the chest and normal palpation of entire chest wall CHEST: Yes Symmetrical chest wall rise, No mass, No tenderness, No Surgical scars present (Chest) and No rash BREAST/AXILLA INSPECTION: Yes normal inspection of the axillae Resp: COMMON NORMALS: clear to auscultation bilaterally EFFORT & INSPECTION: Yes able to speak in complete sentences, No respiratory distress and No Actively coughing AUSCULTATION: clear to auscultation bilaterally, no crackles, no rales, no rhonchi, no wheezes and vesicular breath sounds Cardio: COMMON NORMALS: no JVD, regular rate, regular rhythm, S1 normal heart sound present, S2 normal heart sound present and Peripheral pulses 2+ throughout PALPATION: normal PMI RATE: regular rate RHYTHM: regular rhythm HEART SOUNDS: S1 normal heart sound present, S2 normal heart sound present, no gallops and no murmurs BRUITS: no carotid bruits PERIPHERAL PULSES: Peripheral pulses 2+ throughout, radial pulses present, posterior tibial pulses present and dorsalis pedis present GI: COMMON NORMALS: Soft to palpation AUSCULTATION: Yes normoactive bowel sounds PALPATION: Yes Soft to palpation, No Tenderness to palpation present (GI), No Guarding due to palpation present (GI) and No Rigid due to palpation PERCUSSION: tympanic to percussion Extremity: GENERAL: No calf tenderness, No cyanosis, Yes edema and No pallor Neuro: COMMON NORMALS: moves all extremities, no focal motor deficits and gait normal SENSORIUM/ORIENTATION: Yes alert Psych: COMMON NORMALS: Normal thought process present and speech normal APPEARANCE: Yes well kempt SPEECH: Yes normal speech MOOD & AFFECT: Yes euthymic mood THOUGHT PROCESS: Normal thought process present THOUGHT CONTENT: Yes Normal thought content present Skin: HAIR: normal NAILS: normal and no clubbing Data Imaging^: Other Imaging: Radiologist's impression: Transthoracic echocardiogram 21 March 2017 CONCLUSIONS 1-Normal left ventricular cavity size. Normal left ventricular wall thickness. Normal left ventricular systolic function. Left ventricular ejection fraction is estimated at 62 %. Grade I/IV diastolic dysfunction (abnormal relaxation filling pattern), normal to mildly elevated filling pressures. No regional wall motion abnormalities. 2-There is no pericardial effusion. 3-No significant valve abnormalities. 4-Pulmonary artery systolic pressure is within normal limits. 5-Right atrial pressure is around 5 mm of mercury. # TTE (04/21/2020) Mildly dilated LV. LV systolic function is severely reduced with ejection fraction of 20 to 25%. Severe global hypokinesis is present with akinetic anteroseptal, inferoseptal and apical pimentel. Normal left ventricular wall thickness. Grade 2 diastolic dysfunction is present with elevated filling pressures. A&P Assessment and plan (1) NSTEMI (non-ST elevated myocardial infarction): She does have anterolateral T wave inversion suggestive of ischemia with severely decreased LV function and akinetic and IS pimentel. We are probably catching her at tail end of [place]. -I had a long discussion with patient and her son Rupesh. They have decided to pursue medical management and I agree with their plan. -Continue DAPT, beta tosha and statin. Heparin for 48 hrs. Status: Acute (2) CHF exacerbation: lasix 40 mg IV x 1, I/O charting. Status: Acute Qualifiers: Heart failure type: unspecified Qualified Code(s): I50.9 - Heart failure, unspecified (3) MONICA (acute kidney injury): -f/u BMp after diuresis Status: Acute (4) Bradycardia: Status: Acute Additional A&P Information History of multiple TIAs Poor historian Advanced age MCI/Dementia Thank you for allowing me to participate in patient's care. Plaese feel free to call with questions and concerns. Consult Attestations Medical Necessity Statement: Needs hospital stay for management of NSTEMI and CHF. 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
[2020-04-21] MEDS: aspirin 81 mg EC Tablet PO (09:10)
[2020-04-21] MEDS: clopidogrel 75 mg Tablet PO (09:10)
[2020-04-21] MEDS: metoprolol succinate ER (24 HR) 25 mg Tablet 12.5 MG PO (09:10)
[2020-04-21] MEDS: atorvastatin 40 mg Tablet 80 MG PO (09:10)
[2020-04-21] MEDS: pantoprazole DR 40 mg Tablet PO (09:10)
[2020-04-21 10:13] LABS: Partial Thromboplastin Time 207.2 SECONDS (23.9-36.7)
--- NOTE | 2020-04-21 10:25 | PC.NURSE ---
PATIENT'S PTT WAS 207.2. CALLED DR. ROCHE. ORDERED TO PAUSE HEPARIN GTT AND REDRAW PTT IN 6 HOURS.
--- NOTE | 2020-04-21 11:11 | PC.CHAP ---
Pastoral Care Encounter/Spiritual Assessment Type of Contact [] Declined edging machine catcher visit [] Patient/Family/Request visit [] Outpatient visit [] Follow-up visit [] Physician referral [] Code/Alert [] Routine visit [] Staff referral [] Actively dying [] Patient sleeping [] Family support [] [] Out of room [] Palliative care [] [] Receiving care in room [] Pre-surgical visit [] Trauma [] Long length of stay [] ICU visit [x] Other: Covid 19 Relational/Emotional Strength [] Patient feels connected with others/family/visitors/staff [] Distress [] Loneliness/isolation [] Abandonment Spirituality of Patient [] Person of Talia [] Attends Uatsdin of their Talia [] Believes in Prayer [] Reads Bible or Gnosticism materials [] There are Spiritual issues to be addressed Vehicle Detailer Interventions [] Prayer [] Active listening [] Non-anxious presence [] Spiritual/emotional support [] Crisis/trauma care [] Spiritual counseling [] Bereavement support [] Provided bereavement packet [] Provided Bible/devotional materials [] Provided toy/stuffed animal, coloring book to patient or family member [] Provided Communion [] Anointing/Ronks [] Salvation [] Completed spiritual assessment [] Other: Impact on Illness or Injury [] Angry [] Fearful [] Anxious [] Often cries [] Exhaustion [] Unable to work [] Unable to attend christianity [] Unable to walk/stand [] Unable to read [] Unable to drive [] Unable to eat/drink [] Unable to sleep [] Unable to be with family [] Patient intubated [] Other: Summary Covid 19 Time spent with patient 5 mins
--- NOTE | 2020-04-21 12:45 | USCV_ITS ---
Aleja Souza Age: 84 Gender: F : 1935 Exam Date: 04/21/2020 14:53 Ordering Phys: Jacky Israel MD Technologist: Carlie Felder [place] [facility] [place]LL[place] HISTORY: Lower extremity swelling. PROCEDURES: Venous duplex imaging was performed in bilateral lower extremities. The following venous structures were evaluated: common femoral vein, profunda vein, proximal portion of the greater saphenous vein, superficial femoral vein, and the popliteal vein. In addition, the posterior tibial and peroneal trunk were evaluated. FINDINGS: Normal 2-D Doppler and augmentation and compressibility throughout the lower extremity venous structures. Additional imaging through the proximal calf veins also reveals no thrombus. Limited evaluation of the greater saphenous vein is patent with no thrombus.. CONCLUSIONS No evidence of right lower extremity DVT. No evidence of left lower extremity DVT. Joe Plunkett MD (Electronically Signed) Final Date: 21 April 2020 15:46 S
[2020-04-21] MEDS: doxycycline 100 MG in sodium chloride 0.9% (plus) 100 ML IV ×2 (14:04→22:21)
[2020-04-21] MEDS: FUROsemide 10 mg/mL SDV 4mL 40 MG IVP (14:04)
--- NOTE | 2020-04-21 15:57 | P.PN_ITS ---
Subjective Subjective: Interval history: While in the morning when I examined the, she was saturating well on BiPAP. She was also able to communicate. Other vitals and labs have been reviewed. Medications: Reviewed: Yes Vitals/I&O/Wt Last Vital Signs Temp 98 F 04/21/20 04:44 Pulse 78 04/21/20 15:40 Resp 18 04/21/20 14:00 BP 128/73 04/21/20 14:00 Pulse Ox 99 04/21/20 15:40 04/21/20 04/21/20 04/21/20 06:59 14:59 22:59 Intake Total 100 / 100 151.333 / 151.333 Balance 100 / 100 151.333 / 151.333 Weight last 48 hrs Weight 69.536 kg Weight 61.235 kg Physical Exam Const: COMMON NORMALS: patient oriented x3 HENMT: COMMON NORMALS: normocephalic, atraumatic, hearing grossly normal bilaterally and external ears normal HEAD & SCALP: normocephalic and atraumatic EXTERNAL EAR: Yes external ears normal Eye: COMMON NORMALS: no scleral icterus GENERAL EYE: appearance normal, both eyes and all related structures Chest: COMMONS NORMALS: normal inspection of the chest and normal palpation of entire chest wall CHEST: Yes Symmetrical chest wall rise Resp: COMMON NORMALS: normal respiratory effort, No retractions, No use of accessory muscles and clear to auscultation bilaterally EFFORT & INSPECTION: Yes symmetric chest movement AUSCULTATION: clear to auscultation bilaterally Cardio: COMMON NORMALS: regular rate, regular rhythm, S1 normal heart sound present, S2 normal heart sound present, No gallops present (Cardio), No murmurs present (Cardio), No rub (Cardio) and Peripheral pulses 2+ throughout RATE: regular rate RHYTHM: regular rhythm HEART SOUNDS: S1 normal heart sound present and S2 normal heart sound present PERIPHERAL PULSES: Peripheral pulses 2+ throughout GI: COMMON NORMALS: Normal to inspection, nondistended, normoactive bowel sounds present, Soft to palpation, non-tender, No hepatosplenomegaly present and no masses AUSCULTATION: Yes normoactive bowel sounds PALPATION: Yes Soft to palpation and Yes No hepatosplenomegaly present RECTAL EXAM: deferred Extremity: COMMON NORMALS: no clubbing, cyanosis or edema and no pedal edema Neuro: COMMON NORMALS: patient oriented x3 Data : 04/21/20 04:15 04/21/20 04:15 A&P Assessment and plan (1) Acute respiratory failure with hypoxia: Acute hypoxic respiratory failure secondary to decompensated systolic heart failure//pneumonia Patient is on BiPAP currently requiring 40% FiO2. She is on doxycycline 100 mg every 12 hours daily. Status: Acute (2) CHF exacerbation: She has received IV Lasix 40?1 in the ED. we will continue to reassess her volume status. And decide on IV diuresis. Strict intake output charting. Daily weight. Low-salt diet. Restrict fluid to 1.5 L daily. Status: Acute Qualifiers: Heart failure type: unspecified Qualified Code(s): I50.9 - Heart failure, unspecified (3) NSTEMI (non-ST elevated myocardial infarction): She does have anterolateral T wave inversion suggestive of ischemia with severely decreased LV function and akinetic and IS pimentel. We are probably catching her at tail end of [place]. -As per cardiology discussion with patient and her son Rupesh. They have decided to pursue medical management and I agree with their plan. -Continue DAPT, beta tosha and statin. Heparin for 48 hrs. Status: Acute (4) Hypertension: Continue metoprolol tartrate 12.5 mg every 12 hours daily Status: Acute Additional A&P Information DVT prophylaxis: On heparin drip for NSTEMI. GI prophylaxis: Protonix 40 IV daily. Attestations Medical Necessity Statement*: He needs to stay in hospital for management of NSTEMI as well as decompensated systolic heart failure. Coding Level of Care Code Acute Supervisor Roving Department for Arnaud Bundy Diagnoses Acute respiratory failure with hypoxia J96.01 CHF exacerbation I50.9 Heart failure type: unspecified NSTEMI (non-ST elevated myocardial infarction) I21.4 Hypertension I10
[2020-04-21 16:43] LABS: Partial Thromboplastin Time 26.9 SECONDS (23.9-36.7)
--- NOTE | 2020-04-21 18:42 | PC.NURSE ---
PTT AT 1615 (RESULTED AT 1815) WAS 26.9. NOTIFIED DR. ROCHE. ORDERED TO START HEPARIN GTT AT 20ML/HR PER HEPARIN GTT PROTOCOL AND TO NOT ADMINISTER A BOLUS.
[2020-04-21] MEDS: morphine 4 mg/mL SDV 1 mL IVP (23:42)
--- NOTE | 2020-04-21 23:55 | PC.NURSE ---
Patient presenting with increased respiratory effort, contacted RT and both staff members assessed patient, PRN morphine was given to help reduce air hunger. RT aware. Continue care
[2020-04-22] VITALS (13 sets, daily range): BP systolic 105–129; BP diastolic 59–75; PULSE 64–94; RESP 14–32; TEMP 36.5–37; O2SAT 90–97
[2020-04-22 00:57] LABS: Partial Thromboplastin Time 120.5 SECONDS (23.9-36.7)
--- NOTE | 2020-04-22 01:05 | PC.NURSE ---
Received PTT results at 0100, decreased heparin gtt per protocol and had Leta Page RN verify rate change. Drip currently running at 16mL/Hr. New orders for redraw of PTT at 0700 per protocol entered. Continue care
--- NOTE | 2020-04-22 02:35 | PC.NURSE ---
Patient resting in bed with eyes closed at this time, patient's respiratory rate has decreased and is now WNL. Continue care.
[2020-04-22 03:43] LABS: Coronavirus Lab Test PTC Negative
[2020-04-22 04:34] LABS: Platelet Count 256 10^3/cmm (130-400)
[2020-04-22 06:32] LABS: Basophils % 0.1 %; Hematocrit 29.9 % (37.0-47.0); Hemoglobin 9.7 g/dL (11.5-15.3); Lymphocytes # 0.9 10^3/uL (0.8-4.8); Mean Corpuscular HGB Conc 32.4 g/dL (30.0-36.0); Mean Corpuscular Hemoglobin 28.9 pg (28.0-34.0); Monocytes # 0.8 10^3/uL (0.2-0.9); Monocytes % 6.2 %; Neutrophils # 10.49 10^3/uL (1.8-7.7); Neutrophils % 86.1 %; Nucleated Red Blood Cells % 0 %; Platelet Count 251 10^3/cmm (130-400); Red Blood Count 3.36 10^6/uL (4.1-5.3); Red Cell Distribution Width 14.4 % (12.1-15.1); White Blood Count 12.2 10^3/uL (4.0-10.0)
[2020-04-22 06:55] LABS: Anion Gap 21.4 (5-19); Blood Urea Nitrogen 31 mg/dL (8-23); Calcium 9.2 mg/dL (8.5-10.5); Carbon Dioxide 15 mmol/L (22-29); Chloride 105 mmol/L (98-107); Glucose 173 mg/dL (65-115); Magnesium 1.8 mg/dL (1.7-2.3); Osmolality Calculated 297 mOsm/kg (285-295); Potassium 3.4 mmol/L (3.5-5.1); Sodium 138 mmol/L (136-145)
[2020-04-22 07:53] LABS: Partial Thromboplastin Time 100.4 SECONDS (23.9-36.7)
--- NOTE | 2020-04-22 08:35 | PM.PN ---
Subjective Subjective: Interval history: She was on BiPAP last night and this morning. Apparently she is desaturating on 5 L of nasal cannula. Medications: Reviewed: Yes Medication Review Details: Current Medications Albuterol/Ipratropium (Duoneb) 3 ml INHALATION Q6H PRN PRN Reason: SHORTNESS OF BREATH Alprazolam (Xanax) 0.5 mg PO BID PRN PRN Reason: AGITATION Last Admin: 04/22/20 11:19 Dose: 0.5 mg Documented by: Aspirin (Aspirin Ec) 81 mg PO DAILY [facility] Last Admin: 04/22/20 09:27 Dose: 81 mg Documented by: Atorvastatin Calcium (Lipitor) 80 mg PO DAILY [facility] Last Admin: 04/22/20 09:28 Dose: 80 mg Documented by: Clopidogrel Bisulfate (Plavix) 75 mg PO DAILY [facility] Last Admin: 04/22/20 09:28 Dose: 75 mg Documented by: Heparin Sodium (Beef Lung) (Heparin) 0 unit IV PRN PRN; Protocol PRN Reason: Heparin weight-base protocol Last Admin: 04/21/20 02:52 Dose: 3,500 unit Documented by: Heparin Sodium/Sodium Chloride (Heparin Drip) 25,000 unit in 500 mls @ 0 mls/hr IV .Q0M [facility]; Protocol Last Titration: 04/22/20 08:05 Dose: 9.8 unit/kg/hr, 12 mls/hr Documented by: Doxycycline Hyclate 100 mg/ (Sodium Chloride) 100 mls @ 100 mls/hr IV BID@1000,2200 [facility]; Protocol Last Infusion: 04/22/20 12:00 Dose: Infused Documented by: Metoprolol Succinate (Toprol Xl) 12.5 mg PO DAILY [facility] Last Admin: 04/22/20 09:28 Dose: 12.5 mg Documented by: Morphine Sulfate (Morphine) 4 mg IVP Q4H PRN PRN Reason: SEVERE PAIN Last Admin: 04/21/20 23:42 Dose: 4 mg Documented by: Ondansetron HCl (Zofran) 4 mg IVP Q6H PRN PRN Reason: NAUSEA AND VOMITING Pantoprazole Sodium (Protonix) 40 mg IVP DAILY [facility] Last Admin: 04/22/20 09:29 Dose: 40 mg Documented by: Vitals/I&O/Wt Last Vital Signs Temp 98.0 F 04/22/20 08:01 Pulse 72 04/22/20 08:01 Resp 16 04/22/20 08:01 BP 110/59 04/22/20 08:01 Pulse Ox 93 04/22/20 08:01 04/21/20 04/22/20 04/22/20 22:59 06:59 14:59 Intake Total 100 / 251.333 330 / 581.333 Output Total 900 / 900 150 / 1050 Balance -800 / -648.667 180 / -468.667 Weight last 48 hrs Weight 153 lb 4.8 oz Weight 135 lb Physical Exam Const: COMMON NORMALS: no acute distress and alert GENERAL APPEARANCE: cooperative, comfortable, well kempt and well hydrated HENMT: COMMON NORMALS: normocephalic, atraumatic, hearing grossly normal bilaterally, external ears normal, Normal external nose present and moist oral mucous membranes HEAD & SCALP: normocephalic and atraumatic FACE & SINUS: normal facial exam; no edema NOSE: Normal external nose present; no Epistaxis present EXTERNAL EAR: Yes external ears normal TEETH & GINGIVA: Yes dentures and Yes edentulous THROAT: tonsils normal Eye: COMMON NORMALS: Equal, round and reactive pupils present, EOMs intact bilaterally, conjunctivae normal and no scleral icterus GENERAL EYE: appearance normal, both eyes and all related structures ALIGNMENT: Yes alignment normal PERIORBITAL: periorbital findings normal EYELID: eyelids normal CONJUNCTIVA: Yes conjunctivae normal SCLERA: sclerae normal PUPIL: Yes Equal, round and reactive pupils present Neck/C-Spine: COMMON NORMALS: no lymphadenopathy, supple, no JVD and Thyroid normal GENERAL: Yes normal visual inspection, Yes trachea midline and No Mass present (neck) THYROID: Thyroid normal CAROTIDS: Yes normal carotid upstroke CERVICAL SPINE: Yes cervical ROM normal Lymph: LYMPHATIC: no lymphadenopathy noted Chest: COMMONS NORMALS: normal inspection of the chest and normal palpation of entire chest wall CHEST: Yes Symmetrical chest wall rise, No mass, No tenderness, No Surgical scars present (Chest) and No rash BREAST/AXILLA INSPECTION: Yes normal inspection of the axillae Resp: COMMON NORMALS: clear to auscultation bilaterally EFFORT & INSPECTION: Yes able to speak in complete sentences, No respiratory distress and No Actively coughing AUSCULTATION: clear to auscultation bilaterally, no crackles, no rales, no rhonchi, no wheezes and vesicular breath sounds Cardio: COMMON NORMALS: no JVD, regular rate, regular rhythm, S1 normal heart sound present, S2 normal heart sound present and Peripheral pulses 2+ throughout PALPATION: normal PMI RATE: regular rate RHYTHM: regular rhythm HEART SOUNDS: S1 normal heart sound present, S2 normal heart sound present, no gallops and no murmurs BRUITS: no carotid bruits PERIPHERAL PULSES: Peripheral pulses 2+ throughout, radial pulses present, posterior tibial pulses present and dorsalis pedis present GI: COMMON NORMALS: Soft to palpation AUSCULTATION: Yes normoactive bowel sounds PALPATION: Yes Soft to palpation, No Tenderness to palpation present (GI), No Guarding due to palpation present (GI) and No Rigid due to palpation PERCUSSION: tympanic to percussion Extremity: GENERAL: No calf tenderness, No cyanosis, Yes edema and No pallor Neuro: COMMON NORMALS: moves all extremities, no focal motor deficits and gait normal SENSORIUM/ORIENTATION: Yes alert Psych: COMMON NORMALS: Normal thought process present and speech normal APPEARANCE: Yes well kempt SPEECH: Yes normal speech MOOD & AFFECT: Yes euthymic mood THOUGHT PROCESS: Normal thought process present THOUGHT CONTENT: Yes Normal thought content present Skin: HAIR: normal NAILS: normal and no clubbing Data : 04/22/20 03:35 04/22/20 03:35 A&P Assessment and plan (1) NSTEMI (non-ST elevated myocardial infarction): She does have anterolateral T wave inversion suggestive of ischemia with severely decreased LV function and akinetic and IS pimentel. We are probably catching her at tail end of [place]. This is new when compared to her previous echocardiogram in 2017. -I had a long discussion with patient and her son Rupesh. They have decided to pursue medical management and I agree with their plan. -Continue DAPT, beta tosha and statin. Heparin for 48 hrs. Status: Acute (2) CHF exacerbation: Clinically patient does not appear overtly volume overloaded. -She received Lasix yesterday with urine output of about 1 L and negative balance of 500. -I will hold off on Lasix today. Closely monitor clinically and follow-up labs in the morning. Status: Acute Qualifiers: Heart failure type: unspecified Qualified Code(s): I50.9 - Heart failure, unspecified (3) MONICA (acute kidney injury): She does not have typical low output picture. Normal mentation and warm extremities. -renal function has worsened. May have to try a gentle hydration if her UO is low today. -f/u BMp Status: Acute (4) Bradycardia: Status: Acute Additional A&P Information Right lower lobe pneumonia : Antibiotics as per primary team Hypokalemia: replaced History of multiple TIAs Poor historian Advanced age MCI/Dementia Thank you for allowing me to participate in patient's care. Plesae feel free to call with questions and concerns. Attestations Medical Necessity Statement*: Needs hospital stay for NSTEMI, worsening renal function. Coding Level of Care Code Acute [employer] for [facility] Fwd Exam Comprehensive Diagnoses NSTEMI (non-ST elevated myocardial infarction) I21.4 CHF exacerbation I50.9 Heart failure type: unspecified MONICA (acute kidney injury) N17.9 Bradycardia R00.1
[2020-04-22] MEDS: aspirin 81 mg EC Tablet PO (09:27)
[2020-04-22] MEDS: potassium chloride ER 10 mEq Tablet 20 MEQ PO (09:27)
[2020-04-22] MEDS: metoprolol succinate ER (24 HR) 25 mg Tablet 12.5 MG PO (09:28)
[2020-04-22] MEDS: clopidogrel 75 mg Tablet PO (09:28)
[2020-04-22] MEDS: atorvastatin 40 mg Tablet 80 MG PO (09:28)
[2020-04-22] MEDS: pantoprazole 40 mg SDV IVP (09:29)
--- NOTE | 2020-04-22 09:31 | P.PN_ITS ---
Subjective Subjective: Interval history: Patient needs supplemental oxygen. She has been on BiPAP all night and has done well on BiPAP. But unfortunately she has desaturated on 5 L oxygen through nasal cannula. Vitals and labs reviewed. Medications: Reviewed: Yes Vitals/I&O/Wt Last Vital Signs Temp 98.0 F 04/22/20 08:01 Pulse 72 04/22/20 08:01 Resp 16 04/22/20 08:01 BP 110/59 04/22/20 08:01 Pulse Ox 93 04/22/20 08:01 04/21/20 04/22/20 04/22/20 22:59 06:59 14:59 Intake Total 100 / 251.333 330 / 581.333 Output Total 900 / 900 150 / 1050 Balance -800 / -648.667 180 / -468.667 Weight last 48 hrs Weight 69.536 kg Weight 61.235 kg Physical Exam Const: COMMON NORMALS: patient oriented x3 HENMT: COMMON NORMALS: normocephalic, atraumatic, hearing grossly normal bilaterally and external ears normal HEAD & SCALP: normocephalic and atraumatic EXTERNAL EAR: Yes external ears normal Eye: COMMON NORMALS: no scleral icterus GENERAL EYE: appearance normal, both eyes and all related structures Chest: COMMONS NORMALS: normal inspection of the chest and normal palpation of entire chest wall CHEST: Yes Symmetrical chest wall rise Resp: COMMON NORMALS: normal respiratory effort, No retractions, No use of accessory muscles and clear to auscultation bilaterally EFFORT & INSPECTION: Yes symmetric chest movement AUSCULTATION: clear to auscultation bilaterally Cardio: COMMON NORMALS: regular rate, regular rhythm, S1 normal heart sound present, S2 normal heart sound present, No gallops present (Cardio), No murmurs present (Cardio), No rub (Cardio) and Peripheral pulses 2+ throughout RATE: regular rate RHYTHM: regular rhythm HEART SOUNDS: S1 normal heart sound present and S2 normal heart sound present PERIPHERAL PULSES: Peripheral pulses 2+ throughout GI: COMMON NORMALS: Normal to inspection, nondistended, normoactive bowel sounds present, Soft to palpation, non-tender, No hepatosplenomegaly present and no masses AUSCULTATION: Yes normoactive bowel sounds PALPATION: Yes Soft to palpation and Yes No hepatosplenomegaly present RECTAL EXAM: deferred Extremity: COMMON NORMALS: no clubbing, cyanosis or edema and no pedal edema Neuro: COMMON NORMALS: patient oriented x3 Data : 04/22/20 03:35 04/22/20 03:35 A&P Assessment and plan (1) Acute respiratory failure with hypoxia: Acute hypoxic respiratory failure secondary to decompensated systolic heart failure//pneumonia Patient is on BiPAP currently requiring 40% FiO2. She is on doxycycline 100 mg every 12 hours daily. Status: Acute (2) CHF exacerbation: She has received IV Lasix 40?2 doses since admission. Will hold Lasix for today. we will continue to reassess her volume status. And decide on IV diuresis. Strict intake output charting. Daily weight. Low-salt diet. Restrict fluid to 1.5 L daily. Status: Acute Qualifiers: Heart failure type: unspecified Qualified Code(s): I50.9 - Heart failure, unspecified (3) NSTEMI (non-ST elevated myocardial infarction): She does have anterolateral T wave inversion suggestive of ischemia with severely decreased LV function and akinetic and IS pimentel. We are probably catching her at tail end of [place]. -As per cardiology discussion with patient and her son Rupesh. They have decided to pursue medical management and I agree with their plan. -Continue DAPT, beta tosha and statin. Heparin for 48 hrs. Status: Acute (4) Hypertension: Continue metoprolol tartrate 12.5 mg every 12 hours daily Status: Acute Additional A&P Information DVT prophylaxis: On heparin drip for NSTEMI. GI prophylaxis: Protonix 40 IV daily. Attestations Medical Necessity Statement*: She needs to be in hospital for the management of NSTEMI and decompensated heart failure. Coding Level of Care Code Acute [employer] for [facility] Fwd Exam Comprehensive Diagnoses Acute respiratory failure with hypoxia J96.01 CHF exacerbation I50.9 Heart failure type: unspecified NSTEMI (non-ST elevated myocardial infarction) I21.4 Hypertension I10
[2020-04-22] MEDS: doxycycline 100 MG in sodium chloride 0.9% (plus) 100 ML IV ×2 (10:51→21:17)
[2020-04-22] MEDS: ALPRAZolam 0.5 mg Tablet PO ×2 (11:19→21:17)
--- NOTE | 2020-04-22 11:39 | PC.NURSE ---
Pt repositioned on right side lying position spO2 is maintaining at 96-98% on BIPAP fiO2-40%.
--- NOTE | 2020-04-22 13:57 | PC.NURSE ---
Bipap on [employer]. Pt tolerated well. Resting at this time.
[2020-04-22 14:10] LABS: Partial Thromboplastin Time 62.7 SECONDS (23.9-36.7)
[2020-04-22 15:03] LABS: Alanine Aminotransferase 11 U/L (0-33); Albumin Level 3.6 g/dL (3.5-5.2); Alkaline Phosphatase 74 IU/L (35-105); Aspartate Amino Transferase 14 U/L (0-32); Globulin 2.9 g/dL (1.3-4.6); Total Bilirubin 0.7 mg/dL (0.15-1.2); Total Protein 6.5 g/dL (6.6-8.7)
[2020-04-22] MEDS: heparin drip 25,000 UNIT/500 ML PREMIX 12 UNIT IV (20:05)
--- NOTE | 2020-04-22 20:14 | PC.NURSE ---
ASSUMED PT CARE AT SHIFT CHANGE. REPORT RECEIVED FROM OFF GOING NURSE. PT IS RESTING IN BED ON BIPAP AT THIS TIME. PT DENIES PAIN. WILL CONTINUE TO MONITOR.
[2020-04-22 20:15] LABS: Partial Thromboplastin Time 48.8 SECONDS (23.9-36.7)
[2020-04-22] MEDS: heparin 5,000 unit/mL INJ 1 mL IV (20:44)
[2020-04-23] VITALS (12 sets, daily range): BP systolic 124–134; BP diastolic 65–75; PULSE 56–77; RESP 15–32; TEMP 36.4–36.6; O2SAT 91–96
[2020-04-23 02:10] LABS: Basophils % 0.1 %; Eosinophils % 0.1 %; Hematocrit 29.9 % (37.0-47.0); Hemoglobin 9.3 g/dL (11.5-15.3); Lymphocytes # 1.1 10^3/uL (0.8-4.8); Lymphocytes % 7.3 %; Mean Corpuscular HGB Conc 31.1 g/dL (30.0-36.0); Mean Corpuscular Hemoglobin 28.7 pg (28.0-34.0); Mean Corpuscular Volume 92.3 fL (81-99); Mean Platelet Volume 11.6 fL (7.4-10.4); Monocytes % 6.9 %; Neutrophils # 12.47 10^3/uL (1.8-7.7); Neutrophils % 85.2 %; Nucleated Red Blood Cells % 0 %; Platelet Count 247 10^3/cmm (130-400); Red Blood Count 3.24 10^6/uL (4.1-5.3); Red Cell Distribution Width 14.7 % (12.1-15.1); White Blood Count 14.6 10^3/uL (4.0-10.0)
[2020-04-23 02:23] LABS: Partial Thromboplastin Time 65.3 SECONDS (23.9-36.7)
[2020-04-23 02:30] LABS: Anion Gap 16.9 (5-19); Blood Urea Nitrogen 40 mg/dL (8-23); Calcium 8.8 mg/dL (8.5-10.5); Carbon Dioxide 18 mmol/L (22-29); Chloride 107 mmol/L (98-107); Glucose 161 mg/dL (65-115); Osmolality Calculated 299 mOsm/kg (285-295); Potassium 3.9 mmol/L (3.5-5.1); Sodium 138 mmol/L (136-145)
--- NOTE | 2020-04-23 03:55 | PC.NURSE ---
PTT 65.3 PER PROTOCOL NO CHANGE IN RATE. NEXT PTT AT 0800. WILL CONTINUE TO MONITOR.
--- NOTE | 2020-04-23 03:58 | PC.NURSE ---
PT APPEARED TO HAVE RESTED WITH EYES CLOSED THROUGHOUT THE NIGHT. PT HAD A PRN XANAX AT HS FOR INCREASED ANXIETY. ANXIETY APPEARED TO HAVE RESOLVED. PT DENIES PAIN. WILL CONTINUE TO MONITOR.
[2020-04-23] MEDS: clopidogrel 75 mg Tablet PO (08:14)
[2020-04-23] MEDS: atorvastatin 40 mg Tablet 80 MG PO (08:15)
[2020-04-23] MEDS: aspirin 81 mg EC Tablet PO (08:15)
[2020-04-23] MEDS: ALPRAZolam 0.5 mg Tablet PO ×2 (08:15→20:59)
[2020-04-23] MEDS: metoprolol succinate ER (24 HR) 25 mg Tablet 12.5 MG PO (08:15)
[2020-04-23] MEDS: pantoprazole 40 mg SDV IVP (08:15)
[2020-04-23 08:30] LABS: Partial Thromboplastin Time 53.8 SECONDS (23.9-36.7)
--- NOTE | 2020-04-23 08:44 | PC.SOCIAL ---
IMM Update Pg. 2 of IMM updated and copy provided to patient.
--- NOTE | 2020-04-23 09:20 | XRR_ITS ---
PROCEDURE INFORMATION: Exam: XR Chest, 1 View Exam date and time: 04/23/2020 9:21 AM Age: 84 years old Clinical indication: Shortness of breath; Additional info: SOB TECHNIQUE: Imaging protocol: XR of the chest Views: 1 view. COMPARISON: CR XR chest 1V portable [id number] 04/20/2020 10:26 PM FINDINGS: Lungs: central pulmonary vasculature prominent and indistinct. Mild airspace consolidation within the lung bases left greater than right. Pleural space: Pleural effusions left greater than right. Heart/Mediastinum: cardiac silhouette enlarged. Bones/joints: Unremarkable. XR/XR chest 1V portable [id number] IMPRESSION: Mild edema with mild basilar consolidation and pleural effusions left greater than right. Mildly progressive
--- NOTE | 2020-04-23 09:32 | PC.NURSE ---
heparin drip dc'd as ordered at this time
[2020-04-23] MEDS: FUROsemide 10 mg/mL SDV 4mL 40 MG IVP (09:55)
[2020-04-23] MEDS: doxycycline 100 MG in sodium chloride 0.9% (plus) 100 ML IV (09:55)
[2020-04-23] MEDS: lanolin oint 7 gm 1 APPLIC TOPICAL (09:56)
[2020-04-23] MEDS: azithromycin 500 MG in sodium chloride 0.9% 250 ML 250 MG IV (12:00)
--- NOTE | 2020-04-23 12:49 | P.PN_ITS ---
Subjective Subjective: Interval history: Cardiology coverage patient with severe LV systolic dysfunction, heart failure, acute kidney injury, is admitted to hospital with chest pain and shortness of breath. Found to have some features of pneumonia and CHF. According the patient, her symptoms are better. Currently has some discomfort in the chest whenever she get nervous or anxious. No unusual shortness of breath. Medications: Reviewed: Yes Medication Review Details: Current Medications Albuterol/Ipratropium (Duoneb) 3 ml INHALATION Q6H PRN PRN Reason: SHORTNESS OF BREATH Alprazolam (Xanax) 0.5 mg PO BID PRN PRN Reason: AGITATION Last Admin: 04/23/20 08:15 Dose: 0.5 mg Documented by: Aspirin (Aspirin Ec) 81 mg PO DAILY [facility] Last Admin: 04/23/20 08:15 Dose: 81 mg Documented by: Atorvastatin Calcium (Lipitor) 80 mg PO DAILY [facility] Last Admin: 04/23/20 08:15 Dose: 80 mg Documented by: Clopidogrel Bisulfate (Plavix) 75 mg PO DAILY [facility] Last Admin: 04/23/20 08:14 Dose: 75 mg Documented by: Azithromycin 500 mg/ Sodium (Chloride) 250 mls @ 250 mls/hr IV Q24H [facility] Last Admin: 04/23/20 12:00 Dose: 250 mls/hr Documented by: Piperacillin Sod/Tazobactam (Sod 3.375 gm/ Sodium Chloride) 50 mls @ 12.5 mls/hr IV Q8H [facility] Lanolin (Lanolin Oint) 1 applic TOPICAL PRN PRN PRN Reason: DRYNESS Last Admin: 04/23/20 09:56 Dose: 1 applic Documented by: Metoprolol Succinate (Toprol Xl) 12.5 mg PO DAILY [facility] Last Admin: 04/23/20 08:15 Dose: 12.5 mg Documented by: Morphine Sulfate (Morphine) 4 mg IVP Q4H PRN PRN Reason: SEVERE PAIN Last Admin: 04/21/20 23:42 Dose: 4 mg Documented by: Ondansetron HCl (Zofran) 4 mg IVP Q6H PRN PRN Reason: NAUSEA AND VOMITING Pantoprazole Sodium (Protonix) 40 mg IVP DAILY [facility] Last Admin: 04/23/20 08:15 Dose: 40 mg Documented by: Vitals/I&O/Wt Last Vital Signs Temp 97.9 F 04/23/20 04:00 Pulse 73 04/23/20 09:30 Resp 22 H 04/23/20 09:30 BP 128/75 04/23/20 08:00 Pulse Ox 95 04/23/20 09:30 04/22/20 04/23/20 04/23/20 22:59 06:59 14:59 Intake Total 570.334 / 1290.667 100 / 1390.667 337.3 / 337.3 Output Total 100 / 300 100 / 100 Balance 470.334 / 990.667 100 / 1090.667 237.3 / 237.3 Physical Exam Narrative: EXAM NARRATIVE: GENERAL: The patient is alert and oriented times three. Not in any acute distress. HEENT: Mild pallor. No icterus or lymphadenopathy. NECK: Trachea appears to be central. No masses noted. No JVD or thyromegaly appreciated. RESPIRATORY: Chest is symmetrical. No intercostals muscle retraction or any a ccessory muscle activation. There is no chest wall tenderness. Breath sounds are heard bilaterally. No rales or rhonchi heard. No evidence of any consolidation. BREASTS: Deferred. HEART: The heart sounds are normal. No S3 or S4. Systolic murmur in the left sternal border and in the mitral area. No diastolic murmurs. No pericardial rub ABDOMEN: No vessel pulsations or distention. No tenderness. No organomegaly appreciated. Bowel sounds are normally heard. : Deferred. RECTAL: Deferred. LYMPHATIC: No lymphadenopathy noted in the neck or groin. EXTREMITIES: No edema or cyanosis. No clubbing. MUSCULOSKELETAL: No acute joint deformities or swelling SKIN: There are no significant rashes or ecchymosis NEUROPSYCHIATRIC: The patient is alert and oriented x3. Appears to be in a good mood. No tremors or rigidity noted. Urinary Catheter Management^: Junior Latex: Cath Placed During This Visit: yes Urinary Catheter Date of Insertion: 04/23/20 Urinary Catheter Time of Insertion: 10:23 Data : 04/24/20 03:32 04/24/20 03:32 A&P Assessment and plan (1) Atherosclerotic heart disease of [place] coronary artery with other forms of angina pectoris: Patient currently has no recurrence of chest pain. Since he seems to be remaining stable, may not require any specific intervention. May continue on the current treatment measures. Status: Acute (2) Acute on chronic systolic heart failure: The heart failure seems to be clinically compensated. May continue on the current medications. Prophylactic ICD is a consideration. However in view of his multiple risk factors, his long-term prognosis is poor. This may need to be further discussed. Status: Acute (3) MONICA (acute kidney injury): Kidney function seems to be fairly stable. May continue on the current measures. Status: Acute (4) Bradycardia: Patient has no documented symptomatic bradycardia. Continue monitoring on telemetry. Status: Acute Additional A&P Information Other problems are Possible pneumonia Mild anemia the patient's overall cardiovascular status is stable. May continue optimizing her medical treatment. 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
[2020-04-23] MEDS: piperacillin-tazobactam 3.375 GM in sodium chloride 0.9% (plus) 50 ML IV ×2 (13:13→20:58)
--- NOTE | 2020-04-23 13:20 | P.PN_ITS ---
Subjective Subjective: Interval history: Patient is still requiring BiPAP. She is still acutely short of breath on minimal exertion. Chest x-ray has shown signs of pneumonia. 40 mg IV Lasix was given in the morning with good urine out (1200 cc ). We have also started her broad-spectrum antibiotics, namely Zyvox, Zosyn and azithromycin. Vitals and labs have been reviewed. Family have been updated. Medications: Reviewed: Yes Medication Review Details: Current Medications Albuterol/Ipratropium (Duoneb) 3 ml INHALATION Q6H PRN PRN Reason: SHORTNESS OF BREATH Alprazolam (Xanax) 0.5 mg PO BID PRN PRN Reason: AGITATION Last Admin: 04/23/20 08:15 Dose: 0.5 mg Documented by: Aspirin (Aspirin Ec) 81 mg PO DAILY [facility] Last Admin: 04/23/20 08:15 Dose: 81 mg Documented by: Atorvastatin Calcium (Lipitor) 80 mg PO DAILY [facility] Last Admin: 04/23/20 08:15 Dose: 80 mg Documented by: Clopidogrel Bisulfate (Plavix) 75 mg PO DAILY [facility] Last Admin: 04/23/20 08:14 Dose: 75 mg Documented by: Azithromycin 500 mg/ Sodium (Chloride) 250 mls @ 250 mls/hr IV Q24H [facility] Last Admin: 04/23/20 12:00 Dose: 250 mls/hr Documented by: Piperacillin Sod/Tazobactam (Sod 3.375 gm/ Sodium Chloride) 50 mls @ 12.5 mls/hr IV Q8H [facility] Lanolin (Lanolin Oint) 1 applic TOPICAL PRN PRN PRN Reason: DRYNESS Last Admin: 04/23/20 09:56 Dose: 1 applic Documented by: Metoprolol Succinate (Toprol Xl) 12.5 mg PO DAILY [facility] Last Admin: 04/23/20 08:15 Dose: 12.5 mg Documented by: Morphine Sulfate (Morphine) 4 mg IVP Q4H PRN PRN Reason: SEVERE PAIN Last Admin: 04/21/20 23:42 Dose: 4 mg Documented by: Ondansetron HCl (Zofran) 4 mg IVP Q6H PRN PRN Reason: NAUSEA AND VOMITING Pantoprazole Sodium (Protonix) 40 mg IVP DAILY [facility] Last Admin: 04/23/20 08:15 Dose: 40 mg Documented by: Vitals/I&O/Wt Last Vital Signs Temp 97.9 F 04/23/20 04:00 Pulse 73 04/23/20 09:30 Resp 22 H 04/23/20 09:30 BP 128/75 04/23/20 08:00 Pulse Ox 95 04/23/20 09:30 04/22/20 04/23/20 04/23/20 22:59 06:59 14:59 Intake Total 570.334 / 1290.667 100 / 1390.667 337.3 / 337.3 Output Total 100 / 300 100 / 100 Balance 470.334 / 990.667 100 / 1090.667 237.3 / 237.3 Physical Exam Const: COMMON NORMALS: patient oriented x3 HENMT: COMMON NORMALS: normocephalic, atraumatic, hearing grossly normal toni aterally and external ears normal HEAD & SCALP: normocephalic and atraumatic EXTERNAL EAR: Yes external ears normal Eye: COMMON NORMALS: no scleral icterus GENERAL EYE: appearance normal, both eyes and all related structures Chest: COMMONS NORMALS: normal inspection of the chest and normal palpation of entire chest wall CHEST: Yes Symmetrical chest wall rise Resp: COMMON NORMALS: No use of accessory muscles EFFORT & INSPECTION: Yes symmetric chest movement, Yes tachypneic and Yes labored AUSCULTATION: crackles and rales OTHER: Bilateral crackles present in both lung skinner. Up to the level of mid lung skinner. Cardio: COMMON NORMALS: regular rate, regular rhythm, S1 normal heart sound present, S2 normal heart sound present, No gallops present (Cardio), No murmurs present (Cardio), No rub (Cardio) and Peripheral pulses 2+ throughout RATE: regular rate RHYTHM: regular rhythm HEART SOUNDS: S1 normal heart sound present and S2 normal heart sound present PERIPHERAL PULSES: Peripheral pulses 2+ throughout GI: COMMON NORMALS: Normal to inspection, nondistended, normoactive bowel so unds present, Soft to palpation, non-tender, No hepatosplenomegaly present and no masses AUSCULTATION: Yes normoactive bowel sounds PALPATION: Yes Soft to palpation and Yes No hepatosplenomegaly present RECTAL EXAM: deferred Extremity: COMMON NORMALS: no clubbing, cyanosis or edema and no pedal edema Neuro: COMMON NORMALS: patient oriented x3 Urinary Catheter Management^: Junior Latex: Cath Placed During This Visit: yes Urinary Catheter Date of Insertion: 04/23/20 Urinary Catheter Time of Insertion: 10:23 Data : 04/23/20 01:51 04/23/20 01:51 A&P Assessment and plan (1) Acute respiratory failure with hypoxia: Acute hypoxic respiratory failure secondary to decompensated systolic heart failure//pneumonia Patient is on BiPAP currently requiring 40% FiO2. She was started on doxy doxycycline 100 mg every 12 hours daily. But given worsening pneumonia with worsening leukocyte count. We have broadened antibiotic coverage. Currently she is Zyvox and Zosyn and azithromycin. Status: Acute (2) CHF exacerbation: We have started her on 40 mg IV d Lasix daily. Strict intake output charting. Daily weight. Low-salt diet. Restrict fluid to 1.5 L daily. Status: Acute Qualifiers: Heart failure type: unspecified Qualified Code(s): I50.9 - Heart failure, unspecified (3) NSTEMI (non-ST elevated myocardial infarction): She does have anterolateral T wave inversion suggestive of ischemia with severely decreased LV function and akinetic and IS pimentel. We are probably catching her at [place] of [place]. -As per cardiology discussion with patient and her son Rupesh. They have decided to pursue medical management and I agree with their plan. -Continue DAPT, beta tosha and statin. Heparin for 48 hrs. Status: Acute (4) Hypertension: Continue metoprolol tartrate 12.5 mg every 12 hours daily Status: Acute Additional A&P Information DVT prophylaxis: Heparin 5000 every q12h daily. GI prophylaxis: Protonix 40 IV daily. Attestations 2 Medical Necessity Statement*: She needs to stay in hospital for the management of acute on chronic decompensated systolic heart failure as well as pneumonia. 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
[2020-04-23] MEDS: sodium chloride 0.9% (100 ml) 100 ML 10 ML (16:03)
[2020-04-23] MEDS: hyDRALAzine 10 mg Tablet PO ×2 (16:04→23:19)
[2020-04-23] MEDS: linezolid premix 600 MG/300 ML PREMIX 300 MG IV (17:19)
--- NOTE | 2020-04-23 18:41 | PC.NURSE ---
pt recieved lasix 40 mg iv today and diuresed 1000 cc light yellow urine.zosyn,zyvox added to antibiotic regime.recieved pcxr. leos cath was inserted due to decompensation with minimal activity ..as up to bedside commode.was off bipap 35% fio2 for meals..(placed on 3 l nc o2 at those times)...maintained o2 sats 91-92%...but pt c/o sob.
--- NOTE | 2020-04-23 19:17 | PC.NURSE ---
ASSUMED PT CARE AT SHIFT CHANGE. REPORT RECEIVED FROM OFF GOING NURSE. PT IS RESTING IN BED ON BIPAP AT THIS TIME. PT REMINDED THIS NURSE TO BRING A XANAX AT HS. PT DENIES PAIN. WILL CONTINUE TO MONITOR.
[2020-04-24] VITALS (11 sets, daily range): BP systolic 122–133; BP diastolic 64–81; PULSE 56–81; RESP 16–42; TEMP 36.4–37.1; O2SAT 90–96
[2020-04-24 04:08] LABS: Basophils % 0.1 %; Eosinophils # 0.1 10^3/uL (0.0-0.8); Eosinophils % 0.4 %; Hematocrit 31.7 % (37.0-47.0); Lymphocytes % 14.5 %; Mean Corpuscular HGB Conc 31.5 g/dL (30.0-36.0); Mean Corpuscular Hemoglobin 28.2 pg (28.0-34.0); Mean Corpuscular Volume 89.5 fL (81-99); Mean Platelet Volume 11.8 fL (7.4-10.4); Monocytes # 1.4 10^3/uL (0.2-0.9); Monocytes % 10.7 %; Neutrophils # 9.98 10^3/uL (1.8-7.7); Neutrophils % 73.9 %; Nucleated Red Blood Cells % 0 %; Platelet Count 215 10^3/cmm (130-400); Red Blood Count 3.54 10^6/uL (4.1-5.3); Red Cell Distribution Width 14.4 % (12.1-15.1); White Blood Count 13.5 10^3/uL (4.0-10.0)
[2020-04-24] MEDS: ipratropium-albuterol 3 mL Neb INHALATION (04:14)
[2020-04-24] MEDS: morphine 4 mg/mL SDV 1 mL IVP ×2 (04:14→22:27)
[2020-04-24 04:37] LABS: Anion Gap 16.4 (5-19); Blood Urea Nitrogen 40 mg/dL (8-23); Calcium 8.8 mg/dL (8.5-10.5); Carbon Dioxide 19 mmol/L (22-29); Chloride 106 mmol/L (98-107); Glucose 127 mg/dL (65-115); Osmolality Calculated 297 mOsm/kg (285-295); Potassium 3.4 mmol/L (3.5-5.1); Sodium 138 mmol/L (136-145)
--- NOTE | 2020-04-24 04:39 | XRR_ITS ---
PROCEDURE INFORMATION: Exam: XR Chest, 1 View Exam date and time: 04/24/2020 4:43 AM Age: 84 years old Clinical indication: Dyspnea; Additional info: PT short of breath TECHNIQUE: Imaging protocol: XR of the chest Views: 1 view. COMPARISON: CR (CHEST, ) 04/23/2020 9:31 AM FINDINGS: Patient's face obscures left lung apex. Moderate ill-defined opacification at each lung base is most compatible with bilateral atelectasis/infiltrate with adjacent right pleural effusion. Small left pleural effusion not excluded. There is now vascular congestion and likely edema. Overall the findings appear increased from prior study. There is scattered pulmonary scarring bilaterally. Visualized cardiac silhouette size again appears about moderately enlarged. Pericardial effusion not excluded. Thoracic aorta is unfolded. There are calcifications in the thoracic aorta. XR/XR chest 1V portable [id number] IMPRESSION: Moderate ill-defined opacification at each lung base is most compatible with bilateral atelectasis/infiltrate with adjacent right pleural effusion. Small left pleural effusion not excluded. There is now vascular congestion and likely edema. Overall the findings appear increased from prior study. Visualized cardiac silhouette size again appears about moderately enlarged. Pericardial effusion not excluded.
[2020-04-24] MEDS: linezolid premix 600 MG/300 ML PREMIX 300 MG IV ×2 (04:43→16:10)
[2020-04-24] MEDS: LORazepam 2 mg/mL INJ 1 mL IVP (04:56)
[2020-04-24] MEDS: FUROsemide 10 mg/mL SDV 4mL 40 MG IVP ×3 (05:18→21:53)
[2020-04-24] MEDS: piperacillin-tazobactam 3.375 GM in sodium chloride 0.9% (plus) 50 ML IV ×3 (05:23→21:58)
[2020-04-24] MEDS: hyDRALAzine 10 mg Tablet PO (06:20)
--- NOTE | 2020-04-24 06:56 | PC.NURSE ---
PT STARTED TO HAVE INCREASED ISSUES BREATHING. RT WAS NOTIFIED FOR TX. RT AND THIS NURSE CONTACTED DR WAYNE. PT RR WAS 30+. PT SOUNDED COARSE WITH WHEEZES. DR YEE AND SEEN PT ORDERED 2MG ATIVAN IVP, 60MG SOLU-MEDROL IVP, AND A CHEST X-RAY. OFFICE MANAGER RECEPTIONIST NURSE GAVE IVP FOR THIS NURSE. PT HAS CALMED DOWN. HR 54, RR 15, SPO2 93. FIO2 WAS INCREASED TO 60. WILL CONTINUE TO MONITOR.
--- NOTE | 2020-04-24 07:55 | PC.NURSE ---
HR is sinus lee ann, 50s BP 130/76. Dr. Israel notified. Telephone order received to hold morning metoprolol dose. Reassess HR around noon. RBTO.
[2020-04-24] MEDS: hyDRALAzine 25 mg Tablet PO ×2 (08:58→15:09)
[2020-04-24] MEDS: heparin 5,000 unit/mL INJ 1 mL 5000 UNIT SUBCUT ×2 (08:58→19:50)
[2020-04-24] MEDS: atorvastatin 40 mg Tablet 80 MG PO (09:02)
[2020-04-24] MEDS: aspirin 81 mg EC Tablet PO (09:03)
[2020-04-24] MEDS: clopidogrel 75 mg Tablet PO (09:03)
[2020-04-24] MEDS: potassium chloride ER 10 mEq Tablet 40 MEQ PO (09:03)
[2020-04-24] MEDS: pantoprazole 40 mg SDV IVP (09:19)
[2020-04-24] MEDS: azithromycin 500 MG in sodium chloride 0.9% 250 ML 250 MG IV (11:59)
--- NOTE | 2020-04-24 15:25 | P.PN_ITS ---
Subjective Subjective: Interval history: Patient is feeling better. Still has some dyspnea on exertion. No orthopnea PND. No fever or chills. No cough. Medications: Reviewed: Yes Medication Review Details: Current Medications Albuterol/Ipratropium (Duoneb) 3 ml INHALATION Q6H PRN PRN Reason: SHORTNESS OF BREATH Last Admin: 04/24/20 04:14 Dose: 3 ml Documented by: Alprazolam (Xanax) 0.5 mg PO BID PRN PRN Reason: AGITATION Last Admin: 04/23/20 20:59 Dose: 0.5 mg Documented by: Aspirin (Aspirin Ec) 81 mg PO DAILY [facility] Last Admin: 04/24/20 09:03 Dose: 81 mg Documented by: Atorvastatin Calcium (Lipitor) 80 mg PO DAILY [facility] Last Admin: 04/24/20 09:02 Dose: 80 mg Documented by: Clopidogrel Bisulfate (Plavix) 75 mg PO DAILY [facility] Last Admin: 04/24/20 09:03 Dose: 75 mg Documented by: Furosemide (Lasix) 40 mg IVP Q12H [facility] Last Admin: 04/24/20 08:58 Dose: 40 mg Documented by: Heparin Sodium (Beef Lung) (Heparin) 5,000 unit SUBCUT Q12H [facility] Last Admin: 04/24/20 08:58 Dose: 5,000 unit Documented by: Hydralazine HCl (Apresoline) 25 mg PO Q8H [facility] Last Admin: 04/24/20 15:09 Dose: 25 mg Documented by: Azithromycin 500 mg/ Sodium (Chloride) 250 mls @ 250 mls/hr IV Q24H [facility] Last Infusion: 04/24/20 13:00 Dose: Infused Documented by: Piperacillin Sod/Tazobactam (Sod 3.375 gm/ Sodium Chloride) 50 mls @ 12.5 mls/hr IV Q8H [facility] Last Admin: 04/24/20 13:06 Dose: 12.5 mls/hr Documented by: Linezolid (Zyvox Premix) 600 mg in 300 mls @ 300 mls/hr IV Q12H [facility] Last Infusion: 04/24/20 05:43 Dose: Infused Documented by: Lanolin (Lanolin Oint) 1 applic TOPICAL PRN PRN PRN Reason: DRYNESS Last Admin: 04/23/20 09:56 Dose: 1 applic Documented by: Metoprolol Tartrate (Lopressor) 12.5 mg PO Q12H [facility] Last Admin: 04/24/20 07:55 Dose: Not Given Documented by: Morphine Sulfate (Morphine) 4 mg IVP Q4H PRN PRN Reason: SEVERE PAIN Last Admin: 04/24/20 04:14 Dose: 4 mg Documented by: Ondansetron HCl (Zofran) 4 mg IVP Q6H PRN PRN Reason: NAUSEA AND VOMITING Pantoprazole Sodium (Protonix) 40 mg IVP DAILY [facility] Last Admin: 04/24/20 09:19 Dose: 40 mg Documented by: Potassium Chloride (Klor-Con 10) 40 meq PO DAILY [facility] Last Admin: 04/24/20 09:03 Dose: 40 meq Documented by: Vitals/I&O/Wt Last Vital Signs Temp 98.8 F 04/24/20 15:08 Pulse 77 04/24/20 15:08 Resp 20 H 04/24/20 15:08 BP 123/81 04/24/20 15:08 Pulse Ox 93 04/24/20 15:08 04/24/20 04/24/20 04/24/20 06:59 14:59 22:59 Intake Total 350 / 2057.3 1300 / 1300 Output Total 1400 / 2500 1000 / 1000 Balance -1050 / -442.7 300 / 300 Weight last 48 hrs Weight 153 lb 4.8 oz Physical Exam Narrative: EXAM NARRATIVE: GENERAL: The patient is alert and oriented times t hree. Not in any acute distress. HEENT: Mild pallor. No icterus or lymphadenopathy. NECK: Trachea appears to be central. No masses noted. No JVD or thyromegaly appreciated. RESPIRATORY: Chest is symmetrical. No intercostals muscle retraction or any accessory muscle activation. There is no chest wall tenderness. Breath sounds are heard bilaterally. No rales or rhonchi heard. No evidence of any co nsolidation. BREASTS: Deferred. HEART: The heart sounds are normal. No S3 or S4. Systolic murmur in the left sternal border and in the mitral area. No diastolic murmurs. No pericardial rub ABDOMEN: No vessel pulsations or distention. No tenderness. No organomegaly appreciated. Bowel sounds are normally heard. : Deferred. RECTAL: Deferred. LYMPHATIC: No lymphadenopathy noted in the neck or groin. EXTREMITIES: No edema or cyanosis. No clubbing. MUSCULOSKELETAL: No acute joint deformities or swelling SKIN: There are no significant rashes or ecchymosis NEUROPSYCHIATRIC: The patient is alert and oriented x3. Appears to be in a good mood. No tremors or rigidity noted. Urinary Catheter Management^: Junior Latex: Cath Placed During This Visit: yes Reason for Continuing Indwelling Catheter: Other Urinary Catheter Date of Insertion: 04/23/20 Urinary Catheter Time of Insertion: 10:23 Data : 04/25/20 04:10 04/25/20 04:10 Other Labs: Laboratory Last Values WBC 13.5 10^3/uL (4.0-10.0) H 04/24/20 03:32 RBC 3.54 10^6/uL (4.1-5.3) L 04/24/20 03:32 Hgb 10.0 g/dL (11.5-15.3) L 04/24/20 03:32 Hct 31.7 % (37.0-47.0) L 04/24/20 03:32 MCV 89.5 fL (81-99) 04/24/20 03:32 MCH 28.2 pg (28.0-34.0) 04/24/20 03:32 MCHC 31.5 g/dL (30.0-36.0) 04/24/20 03:32 RDW 14.4 % (12.1-15.1) 04/24/20 03:32 Plt Count 215 10^3/cmm (130-400) 04/24/20 03:32 MPV 11.8 fL (7.4-10.4) H 04/24/20 03:32 Neut % (Auto) 73.9 % 04/24/20 03:32 Lymph % (Auto) 14.5 % 04/24/20 03:32 [place] % (Auto) 10.7 % 04/24/20 03:32 Eos % (Auto) 0.4 % 04/24/20 03:32 Baso % (Auto) 0.1 % 04/24/20 03:32 Neut # (Auto) 9.98 10^3/uL (1.8-7.7) H 04/24/20 03:32 Lymph # (Auto) 2.0 10^3/uL (0.8-4.8) 04/24/20 03:32 [place] # (Auto) 1.4 10^3/uL (0.2-0.9) H 04/24/20 03:32 Eos # (Auto) 0.1 10^3/uL (0.0-0.8) 04/24/20 03:32 Baso # (Auto) 0.0 10^3/uL (0.0-0.1) 04/24/20 03:32 Nucleated RBC % (auto) 0 % 04/24/20 03:32 Nucleated RBCs # 0.0 /100WBC 04/24/20 03:32 APTT 53.8 SECONDS (23.9-36.7) H 04/23/20 08:05 Fibrinogen 633 mg/dL (174-498) H 04/20/20 22:33 D-Dimer 1.18 ug/mIFEU (0-0.59) H 04/20/20 22:35 Specimen Type Arterial 04/20/20 22:03 Sample Site Brachial, right 04/20/20 22:03 ABG pH 7.36 (7.35-7.45) 04/20/20 22:03 ABG pCO2 33.3 mmHg (35-45) L 04/20/20 22:03 ABG pO2 69.7 mmHg (80.0-100.0) L 04/20/20 22:03 ABG HCO3 19.0 mmol/L (22-26) L 04/20/20 22:03 ABG Base Excess -5.6 mmol/L (-2.0-2.0) L 04/20/20 22:03 Rupesh Test N/a 04/20/20 22:03 Hematocrit 35.2 % (37-47) L 04/20/20 22:03 Hgb O2 Saturation 92.8 % (95-100) L 04/20/20 22:03 Carboxyhemoglobin 1.0 %THgb (0.4-20.1) 04/20/20 22:03 Methemoglobin 0.8 % (0.4-1.5) 04/20/20 22:03 Total Hemoglobin 11.5 g/dL (12-16) L 04/20/20 22:03 O2 Delivery Device Bipap 04/20/20 22:03 FiO2 55.0 % 04/20/20 22:03 Technical Editor ID Harkr 04/20/20 22:03 Sodium 138 mmol/L (136-145) 04/24/20 03:32 Potassium 3.4 mmol/L (3.5-5.1) L 04/24/20 03:32 Chloride 106 mmol/L (98-107) 04/24/20 03:32 Carbon Dioxide 19 mmol/L (22-29) L 04/24/20 03:32 Anion Gap 16.4 (5-19) 04/24/20 03:32 BUN 40 mg/dL (8-23) H 04/24/20 03:32 Creatinine 1.9 mg/dL (0.5-0.9) H 04/24/20 03:32 GFR Calculation Not Reportable 04/24/20 03:32 Glucose 127 mg/dL (65-115) H 04/24/20 03:32 Calculated Osmolality 297 mOsm/kg (285-295) H 04/24/20 03:32 Calcium 8.8 mg/dL (8.5-10.5) 04/24/20 03:32 Magnesium 1.8 mg/dL (1.7-2.3) 04/22/20 03:35 Total Bilirubin 0.7 mg/dL (0.15-1.2) 04/22/20 03:35 Direct Bilirubin 0.20 mg/dL (0.00-0.30) 04/22/20 03:35 AST 14 U/L (0-32) 04/22/20 03:35 ALT 11 U/L (0-33) 04/22/20 03:35 Alkaline Phosphatase 74 IU/L (35-105) 04/22/20 03:35 Troponin T Baseline 476 ng/L (0-10) H* 04/20/20 22:33 Troponin T 120 Minute 471.5 ng/L (0-10) H 04/21/20 00:58 Delta Troponin T -4.5 ABS# (0-10) L 04/21/20 00:58 Troponin T Hi Sens 6Hr 459.7 ng/L (0-10) H 04/21/20 04:15 Troponin T Hi Sens 6Hr Delta -16.3 ng/L (0-12) L 04/21/20 04:15 C-Reactive Protein 29.7 mg/L (0.0-4.9) H 04/20/20 21:58 NT-Pro-B Natriuret Pep 79383 pg/mL (0-450) H 04/20/20 21:58 Total Protein 6.5 g/dL (6.6-8.7) L 04/22/20 03:35 Albumin 3.6 g/dL (3.5-5.2) 04/22/20 03:35 Globulin 2.9 g/dL (1.3-4.6) 04/22/20 03:35 TSH 1.63 uIU/mL (0.27-4.20) 04/21/20 04:15 Nasal/Oral COVID-19 PCR Negative 04/21/20 01:37 SARS-CoV-2 Ag (Rapid) Negative (Negative) 04/20/20 22:23 A&P Assessment and plan (1) 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 Since he seems to be remaining stable, may not require any specific intervention. May continue on the current treatment measures. Status: Acute (2) Acute on chronic systolic heart failure: The heart failure seems to be clinically compensated. May continue on the current medications. Prophylactic ICD is a consideration. However in view of his multiple risk factors, his long-term prognosis is poor. Status: Acute (3) MONICA (acute kidney injury): Kidney function seems to be fairly stable. May continue on the current measures. Status: Acute (4) Bradycardia: Patient has no documented symptomatic bradycardia. Continue monitoring on telemetry. Status: Acute Additional A&P Information Other problems are Possible pneumonia Mild anemia the patient's overall cardiovascular status is stable. May continue optimizing her medical treatment. 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
--- NOTE | 2020-04-24 15:32 | PM.PN ---
Subjective Subjective: Interval history: Patient was extremely tachypneic last night as well as extremely short of breath. Night team had to give additional 40 mg IV lasix as well as 1 dose of Solu-Medrol 60 mg IV. Currently in the morning she is still requiring 5 L of oxygen through nasal. We have changed Lasix to 40 mg IV q12h daily, and will continue with the current antibiotic. Vitals and labs have been reviewed. Medications: Reviewed: Yes Medication Review Details: Current Medications Albuterol/Ipratropium (Duoneb) 3 ml INHALATION Q6H PRN PRN Reason: SHORTNESS OF BREATH Last Admin: 04/24/20 04:14 Dose: 3 ml Documented by: Alprazolam (Xanax) 0.5 mg PO BID PRN PRN Reason: AGITATION Last Admin: 04/23/20 20:59 Dose: 0.5 mg Documented by: Aspirin (Aspirin Ec) 81 mg PO DAILY [facility] Last Admin: 04/24/20 09:03 Dose: 81 mg Documented by: Atorvastatin Calcium (Lipitor) 80 mg PO DAILY [facility] Last Admin: 04/24/20 09:02 Dose: 80 mg Documented by: Clopidogrel Bisulfate (Plavix) 75 mg PO DAILY [facility] Last Admin: 04/24/20 09:03 Dose: 75 mg Documented by: Furosemide (Lasix) 40 mg IVP Q12H [facility] Last Admin: 04/24/20 08:58 Dose: 40 mg Documented by: Heparin Sodium (Beef Lung) (Heparin) 5,000 unit SUBCUT Q12H [facility] Last Admin: 04/24/20 08:58 Dose: 5,000 unit Documented by: Hydralazine HCl (Apresoline) 25 mg PO Q8H [facility] Last Admin: 04/24/20 15:09 Dose: 25 mg Documented by: Azithromycin 500 mg/ Sodium (Chloride) 250 mls @ 250 mls/hr IV Q24H [facility] Last Infusion: 04/24/20 13:00 Dose: Infused Documented by: Piperacillin Sod/Tazobactam (Sod 3.375 gm/ Sodium Chloride) 50 mls @ 12.5 mls/hr IV Q8H [facility] Last Admin: 04/24/20 13:06 Dose: 12.5 mls/hr Documented by: Linezolid (Zyvox Premix) 600 mg in 300 mls @ 300 mls/hr IV Q12H [facility] Last Infusion: 04/24/20 05:43 Dose: Infused Documented by: Lanolin (Lanolin Oint) 1 applic TOPICAL PRN PRN PRN Reason: DRYNESS Last Admin: 04/23/20 09:56 Dose: 1 applic Documented by: Metoprolol Tartrate (Lopressor) 12.5 mg PO Q12H [facility] Last Admin: 04/24/20 07:55 Dose: Not Given Documented by: Morphine Sulfate (Morphine) 4 mg IVP Q4H PRN PRN Reason: SEVERE PAIN Last Admin: 04/24/20 04:14 Dose: 4 mg Documented by: Ondansetron HCl (Zofran) 4 mg IVP Q6H PRN PRN Reason: NAUSEA AND VOMITING Pantoprazole Sodium (Protonix) 40 mg IVP DAILY [facility] Last Admin: 04/24/20 09:19 Dose: 40 mg Documented by: Potassium Chloride (Klor-Con 10) 40 meq PO DAILY [facility] Last Admin: 04/24/20 09:03 Dose: 40 meq Documented by: Vitals/I&O/Wt Last Vital Signs Temp 98.8 F 04/24/20 15:08 Pulse 77 04/24/20 15:08 Resp 20 H 04/24/20 15:08 BP 123/81 04/24/20 15:08 Pulse Ox 93 04/24/20 15:08 04/24/20 04/24/20 04/24/20 06:59 14:59 22:59 Intake Total 350 / 2057.3 1300 / 1300 Output Total 1400 / 2500 1000 / 1000 Balance -1050 / -442.7 300 / 300 Weight last 48 hrs Weight 69.536 kg Physical Exam Const: COMMON NORMALS: patient oriented x3 HENMT: COMMON NORMALS: normocephalic, atraumatic, hearing grossly normal bilaterally and external ears normal HEAD & SCALP: normocephalic and atraumatic EXTERNAL EAR: Yes external ears normal Eye: COMMON NORMALS: no scleral icterus GENERAL EYE: appearance normal, both eyes and all related structures Chest: COMMONS NORMALS: normal inspection of the chest and normal palpation of entire chest wall CHEST: Yes Symmetrical chest wall rise Resp: COMMON NORMALS: No use of accessory muscles EFFORT & INSPECTION: Yes symmetric chest movement, Yes tachypneic and Yes labored AUSCULTATION: crackles and rales OTHER: Bilateral basal crackles present in both lung skinner. Cardio: COMMON NORMALS: regular rate, regular rhythm, S1 normal heart sound present, S2 normal heart sound present, No gallops present (Cardio), No murmurs present (Cardio), No rub (Cardio) and Peripheral pulses 2+ throughout RATE: regular rate RHYTHM: regular rhythm HEART SOUNDS: S1 normal heart sound present and S2 normal heart sound present PERIPHERAL PULSES: Peripheral pulses 2+ throughout GI: COMMON NORMALS: Normal to inspection, nondistended, normoactive bowel sounds present, Soft to palpation, non-tender, No hepatosplenomegaly present and no masses AUSCULTATION: Yes normoactive bowel sounds PALPATION: Yes Soft to palpation and Yes No hepatosplenomegaly present RECTAL EXAM: deferred Extremity: COMMON NORMALS: no clubbing, cyanosis or edema and no pedal edema Neuro: COMMON NORMALS: patient oriented x3 Urinary Catheter Management^: Junior Latex: Cath Placed During This Visit: yes Reason for Continuing Indwelling Catheter: Other Urinary Catheter Date of Insertion: 04/23/20 Urinary Catheter Time of Insertion: 10:23 Data : 04/24/20 03:32 04/24/20 03:32 A&P Assessment and plan (1) Acute respiratory failure with hypoxia: Acute hypoxic respiratory failure secondary to decompensated systolic heart failure//pneumonia Patient is on BiPAP /and oxygen via nasal cannula 6L currently requiring She was started on doxy doxycycline 100 mg every 12 hours daily. But given worsening pneumonia with worsening leukocyte count. We have broadened antibiotic coverage. Currently she is Zyvox and Zosyn and azithromycin. Status: Acute (2) CHF exacerbation: Currently on 40 mg IV Lasix every 12 hours daily. Strict intake output charting. Daily weight. Low-salt diet. Restrict fluid to 1.5 L daily. Status: Acute Qualifiers: Heart failure type: unspecified Qualified Code(s): I50.9 - Heart failure, unspecified (3) NSTEMI (non-ST elevated myocardial infarction): She does have anterolateral T wave inversion suggestive of ischemia with severely decreased LV function and akinetic and IS pimentel. We are probably catching her at tail end of [place]. -As per cardiology discussion with patient and her son Rupesh. They have decided to pursue medical management and I agree with their plan. -Continue DAPT, beta tosha and statin. Heparin for 48 hrs. Status: Acute (4) Hypertension: Continue metoprolol tartrate 12.5 mg every 12 hours daily as well as hydralazine 25 mg every 8 hours daily. Status: Acute Additional A&P Information DVT prophylaxis: Heparin 5000 every q12h daily. GI prophylaxis: Protonix 40 IV daily. Attestations Medical Necessity Statement*: Patient needs to be in hospital for the management of acute decompensated systolic heart and pneumonia. 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
--- NOTE | 2020-04-24 18:32 | PC.NURSE ---
IV to L AC pulled out by patient. Multiple attempts made by staff to establish IV access. Attempts unsuccessful. nurse from ER to come and place ultrasound guided IV. Nurse to continue to monitor.
[2020-04-24] MEDS: metoprolol tartrate 25 mg Tablet 12.5 MG PO (19:51)
[2020-04-24] MEDS: ALPRAZolam 0.5 mg Tablet PO (21:58)
[2020-04-25] VITALS (9 sets, daily range): BP systolic 110–134; BP diastolic 61–109; PULSE 65–87; RESP 15–30; TEMP 36.4–37; O2SAT 88–98
[2020-04-25] MEDS: hyDRALAzine 25 mg Tablet PO ×4 (00:32→23:55)
--- NOTE | 2020-04-25 01:07 | PC.NURSE ---
PT HR DROPPED DOWN TO 32. DR WAYNE NOTIFIED. WILL CONTINUE TO MONITOR.
[2020-04-25] MEDS: linezolid premix 600 MG/300 ML PREMIX 300 MG IV (04:21)
--- NOTE | 2020-04-25 05:21 | PC.NURSE ---
PT APPEARED TO HAVE RESTED WITH EYES CLOSED THROUGHOUT THE NIGHT. PT HAD A PRN XANAX AT HS FOR INCREASED ANXIETY. ANXIETY APPEARED TO HAVE RESOLVED. DIRECTOR HRIS NURSE GAVE PRN MORPHINE. PT DENIES PAIN. OFF BIPAP FOR MAJORITY OF THE NIGHT. PT ON 6L O2 VIA NC WITH SATS ABOVE 95%. WILL CONTINUE TO MONITOR.
[2020-04-25] MEDS: piperacillin-tazobactam 3.375 GM in sodium chloride 0.9% (plus) 50 ML IV ×2 (05:24→16:11)
[2020-04-25 05:26] LABS: Basophils % 0.1 %; Hematocrit 32.5 % (37.0-47.0); Hemoglobin 10.5 g/dL (11.5-15.3); Lymphocytes # 0.8 10^3/uL (0.8-4.8); Lymphocytes % 5.8 %; Mean Corpuscular HGB Conc 32.3 g/dL (30.0-36.0); Mean Corpuscular Hemoglobin 28.8 pg (28.0-34.0); Mean Corpuscular Volume 89.3 fL (81-99); Mean Platelet Volume 11.8 fL (7.4-10.4); Monocytes # 1.1 10^3/uL (0.2-0.9); Monocytes % 7.9 %; Neutrophils # 11.51 10^3/uL (1.8-7.7); Neutrophils % 85.2 %; Nucleated Red Blood Cells % 0 %; Platelet Count 306 10^3/cmm (130-400); Red Blood Count 3.64 10^6/uL (4.1-5.3); Red Cell Distribution Width 14.4 % (12.1-15.1); White Blood Count 13.5 10^3/uL (4.0-10.0)
[2020-04-25 05:52] LABS: Blood Urea Nitrogen 47 mg/dL (8-23); Calcium 9.2 mg/dL (8.5-10.5); Carbon Dioxide 21 mmol/L (22-29); Chloride 103 mmol/L (98-107); Glucose 197 mg/dL (65-115); Osmolality Calculated 302 mOsm/kg (285-295); Sodium 137 mmol/L (136-145)
[2020-04-25] MEDS: pantoprazole 40 mg SDV IVP (08:51)
[2020-04-25] MEDS: heparin 5,000 unit/mL INJ 1 mL 5000 UNIT SUBCUT ×2 (08:51→20:33)
[2020-04-25] MEDS: aspirin 81 mg EC Tablet PO (08:52)
[2020-04-25] MEDS: metoprolol tartrate 25 mg Tablet 12.5 MG PO ×2 (08:52→20:31)
[2020-04-25] MEDS: potassium chloride ER 10 mEq Tablet 40 MEQ PO (08:52)
[2020-04-25] MEDS: atorvastatin 40 mg Tablet 80 MG PO (08:52)
[2020-04-25] MEDS: clopidogrel 75 mg Tablet PO (08:52)
[2020-04-25] MEDS: azithromycin 500 MG in sodium chloride 0.9% 250 ML 250 MG IV (11:34)
--- NOTE | 2020-04-25 13:21 | P.PN_ITS ---
Subjective Subjective: Interval history: Aleja reports she is doing okay. Denies any pain. Medications: Reviewed: Yes Vitals/I&O/Wt Last Vital Signs Temp 98.2 F 04/25/20 12:00 Pulse 66 04/25/20 12:00 Resp 25 H 04/25/20 12:00 BP 129/72 04/25/20 12:00 Pulse Ox 98 04/25/20 12:00 04/24/20 04/25/20 04/25/20 22:59 06:59 14:59 Intake Total 637 / 1937 750 / 2687 360 / 360 Output Total 1450 / 2450 Balance 637 / 937 -700 / 237 360 / 360 Weight last 48 hrs Weight 70.624 kg Weight 69.536 kg Physical Exam Narrative: EXAM NARRATIVE: General exam is no apparent distress Cardiovascular regular rate and rhythm without murmur Lungs few crackles bibasilar Abdomen is soft nontender with positive bowel sounds Extremities no cyanosis clubbing or edema Urinary Catheter Management^: Junior Latex: Cath Placed During This Visit: yes Reason for Continuing Indwelling Catheter: Accurate Measurement of Urinary Output in Critically Ill Patients Urinary Catheter Date of Insertion: 04/23/20 Urinary Catheter Time of Insertion: 10:23 Data : 04/25/20 04:10 04/25/20 04:10 A&P Assessment and plan (1) Acute respiratory failure with hypoxia: Acute hypoxic respiratory failure secondary to decompensated systolic heart failure//pneumonia Initially required BiPAP. Now down to 5 L. Status: Acute (2) CHF exacerbation: Stephanie receiving Lasix 40 mg IV every 12 hours. Creatinine is increased today. Cardiology to review. Continue fluid restriction Echo demonstrated EF of 20 to 25%, 2/4 diastolic dysfunction Status: Acute Qualifiers: Heart failure type: unspecified Qualified Code(s): I50.9 - Heart failure, unspecified (3) NSTEMI (non-ST elevated myocardial infarction): Continue medical treatment with beta-tosha, statin, aspirin, Plavix Status: Acute (4) Hypertension: Continue metoprolol tartrate 12.5 mg every 12 hours daily as well as hydralazine 25 mg every 8 hours daily. Status: Acute Additional A&P Information Pneumonia. 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 Holding diuresis currently. Cardiology to review. Elevated glucose. Check hemoglobin A1c. Consistent carb diet. Heparin for DVT prophylaxis Allow natural Attestations Medical Necessity Statement*: Needs continued hospitalization, for treatment of pneumonia with IV antibiotics. 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
--- NOTE | 2020-04-25 13:42 | PC.SOCIAL ---
IMM completed on 04/25/2020 @1661. Copy of rights given to pt.
[2020-04-25 14:03] LABS: Estmated Average Glucose 126
[2020-04-25] MEDS: ondansetron 2 mg/ML SDV 2 mL 4 MG IVP (16:16)
[2020-04-25] MEDS: FUROsemide 10 mg/mL SDV 10mL 60 MG IVP (16:31)
--- NOTE | 2020-04-25 17:07 | PC.NURSE ---
UPON 1600 ASSESSMENT, PATIENT NOTED TO HAVE MORE LABORED BREATHING WITH EXCESS CRACKLES NOTED TO BILATERAL LOWER LOBES AND RIGHT MIDDLE LOBE, MORE AUDIBLE THAN FROM HER PREVIOUS ASSESSMENTS. PLACED PATIENT ON BIPAP AND NOTIFIED DR. ASHBY, ORDERED 60MG IV LASIX ONCE NOW. WILL CONTINUE TO MONITOR.
--- NOTE | 2020-04-25 18:15 | PM.PN ---
Subjective Subjective: Interval history: Patient is slowly started to ambulate. Still has significant shortness of breath with activities. No chest pain or chest tightness. No fever or chills. No severe cough. Telemetry shows sinus rhythm. Vital signs are stable Medications: Reviewed: Yes Medication Review Details: Current MedicationsSigns are stable.Vitals p Albuterol/Ipratropium (Duoneb) 3 ml INHALATION Q6H PRN PRN Reason: SHORTNESS OF BREATH Last Admin: 04/24/20 04:14 Dose: 3 ml Documented by: Aspirin (Aspirin Ec) 81 mg PO DAILY [facility] Last Admin: 04/25/20 08:52 Dose: 81 mg Documented by: Atorvastatin Calcium (Lipitor) 80 mg PO DAILY [facility] Last Admin: 04/25/20 08:52 Dose: 80 mg Documented by: Clopidogrel Bisulfate (Plavix) 75 mg PO DAILY [facility] Last Admin: 04/25/20 08:52 Dose: 75 mg Documented by: Furosemide (Lasix) 40 mg IVP Q12H [facility] Last Admin: 04/24/20 21:53 Dose: 40 mg Documented by: Heparin Sodium (Beef Lung) (Heparin) 5,000 unit SUBCUT Q12H [facility] Last Admin: 04/25/20 08:51 Dose: 5,000 unit Documented by: Hydralazine HCl (Apresoline) 25 mg PO Q8H [facility] Last Admin: 04/25/20 16:11 Dose: 25 mg Documented by: Azithromycin 500 mg/ Sodium (Chloride) 250 mls @ 250 mls/hr IV Q24H [facility] Last Infusion: 04/25/20 16:20 Dose: Infused Documented by: Piperacillin Sod/Tazobactam (Sod 3.375 gm/ Sodium Chloride) 50 mls @ 12.5 mls/hr IV Q12H [facility] Last Admin: 04/25/20 16:11 Dose: 12.5 mls/hr Documented by: Lanolin (Lanolin Oint) 1 applic TOPICAL PRN PRN PRN Reason: DRYNESS Last Admin: 04/23/20 09:56 Dose: 1 applic Documented by: Metoprolol Tartrate (Lopressor) 12.5 mg PO Q12H [facility] Last Admin: 04/25/20 08:52 Dose: 12.5 mg Documented by: Ondansetron HCl (Zofran) 4 mg IVP Q6H PRN PRN Reason: NAUSEA AND VOMITING Last Admin: 04/25/20 16:16 Dose: 4 mg Documented by: Pantoprazole Sodium (Protonix) 40 mg PO DAILY [facility] Vitals/I&O/Wt Last Vital Signs Temp 98.3 F 04/25/20 16:00 Pulse 67 04/25/20 17:05 Resp 25 H 04/25/20 16:00 BP 117/61 04/25/20 16:00 Pulse Ox 96 04/25/20 17:06 04/25/20 04/25/20 04/25/20 06:59 14:59 22:59 Intake Total 750 / 2687 600 / 600 250 / 850 Output Total 1450 / 2450 700 / 700 Balance -700 / 237 600 / 600 -450 / 150 Weight last 48 hrs Weight 155 lb 11.2 oz Weight 153 lb 4.8 oz Physical Exam Narrative: EXAM NARRATIVE: GENERAL: The patient is alert and oriented times three. Not in any acute distress. HEENT: Mild pallor. No icterus or lymphadenopathy. NECK: Trachea appears to be central. No masses noted. No JVD or thyromegaly appreciated. RESPIRATORY: Chest is symmetrical. No intercostals muscle retraction or any accessory muscle activation. There is no chest wall tenderness. Breath sounds are heard bilaterally. No rales or rhonchi heard. No evidence of any consolidation. BREASTS: Deferred. HEART: The heart sounds are normal. No S3 or S4. Systolic murmur in the left sternal border and in the mitral area. Short systolic murmur in the left sternal border. no pericardial rub ABDOMEN: No vessel pulsations or distention. No tenderness. No organomegaly appreciated. Bowel sounds are normally heard. : Deferred. RECTAL: Deferred. LYMPHATIC: No lymphadenopathy noted in the neck or groin. EXTREMITIES: No edema or cyanosis. No clubbing. MUSCULOSKELETAL: No acute joint deformities or swelling SKIN: There are no significant rashes or ecchymosis NEUROPSYCHIATRIC: The patient is alert and oriented x3. Appears to be in a good mood. No tremors or rigidity noted. Urinary Catheter Management^: Junior Latex: Cath Placed During This Visit: yes Reason for Continuing Indwelling Catheter: Accurate Measurement of Urinary Output in Critically Ill Patients Urinary Catheter Date of Insertion: 04/23/20 Urinary Catheter Time of Insertion: 10:23 Data : 04/25/20 04:10 04/25/20 04:10 A&P Assessment and plan (1) Atherosclerotic heart disease of [place] coronary artery with other forms of angina pectoris: Patient currently has no recurrence of chest pain. Since he seems to be remaining stable, may not require any specific intervention. May continue on the current treatment measures. Status: Acute (2) Acute on chronic systolic heart failure: The heart failure seems to be clinically compensated. May continue on the current medications. Prophylactic ICD is a consideration. However in view of his multiple risk factors, his long-term prognosis is poor. Status: Acute (3) MONICA (acute kidney injury): Kidney function seems to be fairly stable. BUN/creatinine is improving may continue on the current measures. Status: Acute (4) Bradycardia: Patient has no documented symptomatic bradycardia. Continue monitoring on telemetry. Status: Acute Additional A&P Information Other problems are Possible pneumonia Mild anemia the patient's overall cardiovascular status is stable. May continue optimizing her medical treatment. Attestations Medical Necessity Statement*: Disposition as per the primary Coding Level of Care Code Acute Practice Advisor for [facility] Diagnoses Atherosclerotic heart disease of [place] coronary artery with other forms of angina pectoris I25.118 Acute on chronic systolic heart failure I50.23 MONICA (acute kidney injury) N17.9 Bradycardia R00.1
--- NOTE | 2020-04-25 18:19 | PM.PN ---
Subjective Subjective: Interval history: Denies any new symptoms. No fever or chills. No cough. Vital signs are stable. No new arrhythmias Medications: Reviewed: Yes Medication Review Details: Current Medications Albuterol/Ipratropium (Duoneb) 3 ml INHALATION Q6H PRN PRN Reason: SHORTNESS OF BREATH Last Admin: 04/24/20 04:14 Dose: 3 ml Documented by: Aspirin (Aspirin Ec) 81 mg PO DAILY [facility] Last Admin: 04/25/20 08:52 Dose: 81 mg Documented by: Atorvastatin Calcium (Lipitor) 80 mg PO DAILY [facility] Last Admin: 04/25/20 08:52 Dose: 80 mg Documented by: Clopidogrel Bisulfate (Plavix) 75 mg PO DAILY [facility] Last Admin: 04/25/20 08:52 Dose: 75 mg Documented by: Furosemide (Lasix) 40 mg IVP Q12H [facility] Last Admin: 04/24/20 21:53 Dose: 40 mg Documented by: Heparin Sodium (Beef Lung) (Heparin) 5,000 unit SUBCUT Q12H [facility] Last Admin: 04/25/20 08:51 Dose: 5,000 unit Documented by: Hydralazine HCl (Apresoline) 25 mg PO Q8H [facility] Last Admin: 04/25/20 16:11 Dose: 25 mg Documented by: Azithromycin 500 mg/ Sodium (Chloride) 250 mls @ 250 mls/hr IV Q24H [facility] Last Infusion: 04/25/20 16:20 Dose: Infused Documented by: Piperacillin Sod/Tazobactam (Sod 3.375 gm/ Sodium Chloride) 50 mls @ 12.5 mls/hr IV Q12H [facility] Last Admin: 04/25/20 16:11 Dose: 12.5 mls/hr Documented by: Lanolin (Lanolin Oint) 1 applic TOPICAL PRN PRN PRN Reason: DRYNESS Last Admin: 04/23/20 09:56 Dose: 1 applic Documented by: Metoprolol Tartrate (Lopressor) 12.5 mg PO Q12H [facility] Last Admin: 04/25/20 08:52 Dose: 12.5 mg Documented by: Ondansetron HCl (Zofran) 4 mg IVP Q6H PRN PRN Reason: NAUSEA AND VOMITING Last Admin: 04/25/20 16:16 Dose: 4 mg Documented by: Pantoprazole Sodium (Protonix) 40 mg PO DAILY [facility] Vitals/I&O/Wt Last Vital Signs Temp 98.3 F 04/25/20 16:00 Pulse 67 04/25/20 17:05 Resp 25 H 04/25/20 16:00 BP 117/61 04/25/20 16:00 Pulse Ox 96 04/25/20 17:06 04/25/20 04/25/20 04/25/20 06:59 14:59 22:59 Intake Total 750 / 2687 600 / 600 250 / 850 Output Total 1450 / 2450 700 / 700 Balance -700 / 237 600 / 600 -450 / 150 Weight last 48 hrs Weight 155 lb 11.2 oz Weight 153 lb 4.8 oz Physical Exam Narrative: EXAM NARRATIVE: GENERAL: The patient is alert and oriented times three. Not in any acute distress. HEENT: Mild pallor. No icterus or lymphadenopathy. NECK: Trachea appears to be central. No masses noted. No JVD or thyromegaly appreciated. RESPIRATORY: Chest is symmetrical. No intercostals muscle retraction or any accessory muscle activation. There is no chest wall tenderness. Breath sounds are heard bilaterally. No rales or rhonchi heard. No evidence of any consolidation. BREASTS: Deferred. HEART: The heart sounds are normal. No S3 or S4. Systolic murmur in the left sternal border and in the mitral area. Short systolic murmur in the left sternal border. no pericardial rub ABDOMEN: No vessel pulsations or distention. No tenderness. No organomegaly appreciated. Bowel sounds are normally heard. : Deferred. RECTAL: Deferred. LYMPHATIC: No lymphadenopathy noted in the neck or groin. EXTREMITIES: No edema or cyanosis. No clubbing. MUSCULOSKELETAL: No acute joint deformities or swelling SKIN: There are no significant rashes or ecchymosis NEUROPSYCHIATRIC: The patient is alert and oriented x3. Appears to be in a good mood. No tremors or rigidity noted. Urinary Catheter Management^: Junior Latex: Cath Placed During This Visit: yes Reason for Continuing Indwelling Catheter: Accurate Measurement of Urinary Output in Critically Ill Patients Urinary Catheter Date of Insertion: 04/23/20 Urinary Catheter Time of Insertion: 10:23 Data : 04/26/20 04:28 04/26/20 04:28 A&P Assessment and plan (1) Atherosclerotic heart disease of [place] coronary artery with other forms of angina pectoris: Continue on the current medications. Status: Acute (2) Acute on chronic systolic heart failure: Clinically the heart failure is compensated. Continue on the current medicines Status: Acute (3) MONICA (acute kidney injury): BUN/creatinine is stable Status: Acute (4) Bradycardia: Patient has no documented symptomatic bradycardia. Continue monitoring on telemetry. Status: Acute Additional A&P Information Other problems are Possible pneumonia Mild anemia the patient's overall cardiovascular status is stable. May continue optimizing her medical treatment. Attestations Medical Necessity Statement*: Disposition as per the primary Coding Level of Care Code Acute Network Architect for [facility] Diagnoses Atherosclerotic heart disease of [place] coronary artery with other forms of angina pectoris I25.118 Acute on chronic systolic heart failure I50.23 MONICA (acute kidney injury) N17.9 Bradycardia R00.1
--- NOTE | 2020-04-25 19:28 | PC.NURSE ---
Rounding: PAtient resting in Bed with eyes closed. Patient is on 5L nasal cannula. Respirations are even and unlabored at this time. NO signs of distress noted.
--- NOTE | 2020-04-25 20:52 | PC.NURSE ---
Called Dr. Carranza at patient request for her Xanax. Patient wanted it for rest. and stated she felt anxious. Provider will place orders per her home medication list.
[2020-04-25] MEDS: ALPRAZolam 0.25 mg Tablet PO (21:46)
--- NOTE | 2020-04-25 22:13 | PC.NURSE ---
Patient does not want to wear bipap at this time. states she will rest better without it. This nurse has offered twice.
--- NOTE | 2020-04-25 22:45 | PC.NURSE ---
contacted Dr. Carranza regarding patients request for pain medication. awaiting orders. Went down to update patient that i contacted provider patient was resting with her eyes closed.
[2020-04-25] MEDS: cyclobenzaprine 10 mg Tablet 5 MG PO (23:55)
[2020-04-26] VITALS (9 sets, daily range): BP systolic 113–124; BP diastolic 53–66; PULSE 57–75; RESP 15–26; TEMP 35.7–36.6; O2SAT 93–100
--- NOTE | 2020-04-26 04:35 | PC.NURSE ---
End of shift: Patient put on her bipap about midnight and has rested well since. Patient has had no complaints of pain since her one dose of flexeril. respirations have been 15 to 20 on the bipap and oxygen has stayed above 92%. Patient has had no complaints since.
[2020-04-26 05:06] LABS: Basophils % 0.1 %; Eosinophils # 0.2 10^3/uL (0.0-0.8); Eosinophils % 1.5 %; Hematocrit 32.4 % (37.0-47.0); Hemoglobin 10.2 g/dL (11.5-15.3); Lymphocytes # 2.8 10^3/uL (0.8-4.8); Lymphocytes % 19.2 %; Mean Corpuscular HGB Conc 31.5 g/dL (30.0-36.0); Mean Corpuscular Hemoglobin 28.2 pg (28.0-34.0); Mean Corpuscular Volume 89.5 fL (81-99); Mean Platelet Volume 11.5 fL (7.4-10.4); Monocytes # 1.3 10^3/uL (0.2-0.9); Monocytes % 8.9 %; Neutrophils % 69.7 %; Nucleated Red Blood Cells % 0 %; Platelet Count 293 10^3/cmm (130-400); Red Blood Count 3.62 10^6/uL (4.1-5.3); Red Cell Distribution Width 14.6 % (12.1-15.1); White Blood Count 14.3 10^3/uL (4.0-10.0)
[2020-04-26] MEDS: piperacillin-tazobactam 3.375 GM in sodium chloride 0.9% (plus) 50 ML IV ×2 (05:31→16:59)
[2020-04-26 05:33] LABS: Alanine Aminotransferase 12 U/L (0-33); Albumin Level 3.2 g/dL (3.5-5.2); Alkaline Phosphatase 55 IU/L (35-105); Aspartate Amino Transferase 13 U/L (0-32); Blood Urea Nitrogen 49 mg/dL (8-23); Calcium 8.8 mg/dL (8.5-10.5); Carbon Dioxide 23 mmol/L (22-29); Chloride 104 mmol/L (98-107); Globulin 2.5 g/dL (1.3-4.6); Glucose 119 mg/dL (65-115); Osmolality Calculated 304 mOsm/kg (285-295); Sodium 140 mmol/L (136-145); Total Bilirubin 0.4 mg/dL (0.15-1.2); Total Protein 5.7 g/dL (6.6-8.7)
[2020-04-26] MEDS: hyDRALAzine 25 mg Tablet PO ×2 (09:16→16:57)
[2020-04-26] MEDS: metoprolol tartrate 25 mg Tablet 12.5 MG PO ×2 (09:18→21:13)
[2020-04-26] MEDS: aspirin 81 mg EC Tablet PO (09:20)
[2020-04-26] MEDS: atorvastatin 40 mg Tablet 80 MG PO (09:23)
[2020-04-26] MEDS: clopidogrel 75 mg Tablet PO (09:26)
[2020-04-26] MEDS: pantoprazole DR 40 mg Tablet PO (09:27)
[2020-04-26] MEDS: heparin 5,000 unit/mL INJ 1 mL 5000 UNIT SUBCUT ×2 (09:39→21:13)
[2020-04-26] MEDS: ALPRAZolam 0.25 mg Tablet PO ×2 (10:30→21:13)
[2020-04-26] MEDS: azithromycin 500 MG in sodium chloride 0.9% 250 ML 250 MG IV (11:55)
--- NOTE | 2020-04-26 12:19 | P.PN_ITS ---
Subjective Subjective: Interval history: Aleja is confused, but can answer a few questions. She seems anxious, and breathes fast whenever I approach her. Medications: Reviewed: Yes Medication Review Details: Current Medications Vitals/I&O/Wt Last Vital Signs Temp 97.3 F L 04/26/20 11:39 Pulse 67 04/26/20 11:39 Resp 23 H 04/26/20 11:39 BP 119/53 04/26/20 11:39 Pulse Ox 97 04/26/20 11:39 04/25/20 04/26/20 04/26/20 22:59 06:59 14:59 Intake Total 540 / 1140 Output Total 1150 / 1150 1100 / 2250 Balance -610 / -10 -1100 / -1110 Weight last 48 hrs Weight 70.624 kg Physical Exam Narrative: EXAM NARRATIVE: General exam is no apparent distress Cardiovascular regular rate and rhythm without murmur Lungs few crackles bibasilar Abdomen is soft nontender with positive bowel sounds Extremities no cyanosis clubbing or edema Urinary Catheter Management^: Junior Latex: Cath Placed During This Visit: yes Reason for Continuing Indwelling Catheter: Accurate Measurement of Urinary Output in Critically Ill Patients Urinary Catheter Date of Insertion: 04/23/20 Urinary Catheter Time of Insertion: 10:23 Data : 04/26/20 04:28 04/26/20 04:28 A&P Assessment and plan (1) Acute respiratory failure with hypoxia: Acute hypoxic respiratory failure secondary to decompensated systolic heart failure//pneumonia Initially required BiPAP. Now down to 3 L Status: Acute (2) CHF exacerbation: Stephanie receiving Lasix 40 mg IV every 12 hours. Creatinine is increased today. Cardiology to review. Continue fluid restriction Echo demonstrated EF of 20 to 25%, 2/4 diastolic dysfunction Hopefully can hold Lasix today. Status: Acute Qualifiers: Heart failure type: unspecified Qualified Code(s): I50.9 - Heart failure, unspecified (3) NSTEMI (non-ST elevated myocardial infarction): Continue medical treatment with beta-tosha, statin, aspirin, Plavix Status: Acute (4) Hypertension: Continue metoprolol tartrate 12.5 mg every 12 hours daily as well as hydralazine 25 mg every 8 hours daily. Status: Acute Additional A&P Information Pneumonia. Currently on azithromycin, Zosyn. 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 Hold diuresis today Elevated glucose. Check hemoglobin A1c. Consistent carb diet. Heparin for DVT prophylaxis Allow natural Possible discharge tomorrow back to [facility]. Tried to call family in regards to this but no answer on contact number. Attestations Medical Necessity Statement*: Needs continued hospitalization for adjustment of medications, for heart failure. Coding Level of Care Code Acute Last Chalker for Ritag Fwd Diagnoses Acute respiratory failure with hypoxia J96.01 CHF exacerbation I50.9 Heart failure type: unspecified NSTEMI (non-ST elevated myocardial infarction) I21.4 Hypertension I10
--- NOTE | 2020-04-26 14:41 | PM.PN ---
Subjective Subjective: Interval history: Patient is mainly complaining of extreme weakness/fatigue. Continues to have the dyspnea on exertion. No fever or chills. Has a dry cough. No other specific complaints. Medications: Reviewed: Yes Medication Review Details: Current Medications Acetaminophen (Tylenol) 650 mg PO Q6H PRN PRN Reason: MILD PAIN Albuterol/Ipratropium (Duoneb) 3 ml INHALATION Q6H PRN PRN Reason: SHORTNESS OF BREATH Last Admin: 04/24/20 04:14 Dose: 3 ml Documented by: Alprazolam (Xanax) 0.25 mg PO TID PRN PRN Reason: Anxiety Aspirin (Aspirin Ec) 81 mg PO DAILY [facility] Last Admin: 04/26/20 09:20 Dose: 81 mg Documented by: Atorvastatin Calcium (Lipitor) 80 mg PO DAILY [facility] Last Admin: 04/26/20 09:23 Dose: 80 mg Documented by: Clopidogrel Bisulfate (Plavix) 75 mg PO DAILY [facility] Last Admin: 04/26/20 09:26 Dose: 75 mg Documented by: Cyclobenzaprine HCl (Flexeril) 5 mg PO TID PRN PRN Reason: MUSCLE SPASMS Last Admin: 04/25/20 23:55 Dose: 5 mg Documented by: Furosemide (Lasix) 40 mg IVP Q12H [facility] Last Admin: 04/24/20 21:53 Dose: 40 mg Documented by: Heparin Sodium (Beef Lung) (Heparin) 5,000 unit SUBCUT Q12H [facility] Last Admin: 04/26/20 09:39 Dose: 5,000 unit Documented by: Hydralazine HCl (Apresoline) 25 mg PO Q8H [facility] Last Admin: 04/26/20 09:16 Dose: 25 mg Documented by: Azithromycin 500 mg/ Sodium (Chloride) 250 mls @ 250 mls/hr IV Q24H [facility] Last Admin: 04/26/20 11:55 Dose: 250 mls/hr Documented by: Piperacillin Sod/Tazobactam (Sod 3.375 gm/ Sodium Chloride) 50 mls @ 12.5 mls/hr IV Q12H [facility] Last Admin: 04/26/20 05:31 Dose: 12.5 mls/hr Documented by: Lanolin (Lanolin Oint) 1 applic TOPICAL PRN PRN PRN Reason: DRYNESS Last Admin: 04/23/20 09:56 Dose: 1 applic Documented by: Metoprolol Tartrate (Lopressor) 12.5 mg PO Q12H [facility] Last Admin: 04/26/20 09:18 Dose: 12.5 mg Documented by: Ondansetron HCl (Zofran) 4 mg IVP Q6H PRN PRN Reason: NAUSEA AND VOMITING Last Admin: 04/25/20 16:16 Dose: 4 mg Documented by: Pantoprazole Sodium (Protonix) 40 mg PO DAILY [facility] Last Admin: 04/26/20 09:27 Dose: 40 mg Documented by: Vitals/I&O/Wt Last Vital Signs Temp 97.3 F L 04/26/20 11:39 Pulse 67 04/26/20 11:39 Resp 23 H 04/26/20 11:39 BP 119/53 04/26/20 11:39 Pulse Ox 97 04/26/20 11:39 04/25/20 04/26/20 04/26/20 22:59 06:59 14:59 Intake Total 540 / 1140 Output Total 1150 / 1150 1100 / 2250 Balance -610 / -10 -1100 / -1110 Weight last 48 hrs Weight 155 lb 11.2 oz Physical Exam Narrative: EXAM NARRATIVE: GENERAL: The patient is alert and oriented times three. Not in any acute distress. HEENT: Mild pallor. No icterus or lymphadenopathy. NECK: Trachea appears to be central. No masses noted. No JVD or thyromegaly appreciated. RESPIRATORY: Chest is symmetrical. No intercostals muscle retraction or any accessory muscle activation. There is no chest wall tenderness. Breath sounds are heard bilaterally. Few scattered crackles. Diminished intensity of breath sounds in the bases BREASTS: Deferred. HEART: The heart sounds are normal. No S3 or S4. Systolic murmur in the left sternal border and in the mitral area. Short systolic murmur in the left sternal border. no pericardial rub ABDOMEN: No vessel pulsations or distention. No tenderness. No organomegaly appreciated. Bowel sounds are normally heard. : Deferred. RECTAL: Deferred. LYMPHATIC: No lymphadenopathy noted in the neck or groin. EXTREMITIES: No edema or cyanosis. No clubbing. MUSCULOSKELETAL: No acute joint deformities or swelling SKIN: There are no significant rashes or ecchymosis NEUROPSYCHIATRIC: The patient is alert and oriented x3. Appears to be in a good mood. No tremors or rigidity noted. Urinary Catheter Management^: Junior Latex: Cath Placed During This Visit: yes Reason for Continuing Indwelling Catheter: Accurate Measurement of Urinary Output in Critically Ill Patients Urinary Catheter Date of Insertion: 04/23/20 Urinary Catheter Time of Insertion: 10: Data : 04/26/20 04:28 04/26/20 04:28 A&P Assessment and plan (1) Atherosclerotic heart disease of [place] coronary artery with other forms of angina pectoris: Continue on the current medications. In view of the patient's multiple comorbid conditions and high risk status, optimizing the medical treatment is the plan of action. May continue on the current medications for the time being. Status: Acute (2) Acute on chronic systolic heart failure: Clinically the heart failure is compensated. Continue on the current medicines Status: Acute (3) MOINCA (acute kidney injury): Creatinine seems to be slowly going up. Status: Acute (4) Bradycardia: Patient has no documented symptomatic bradycardia. Continue monitoring on telemetry. Status: Acute Additional A&P Information Other problems are Possible pneumonia Mild anemia Cardiovascular status seems fairly stable. May continue on the current medications. Attestations Medical Necessity Statement*: Disposition as per the primary Coding Level of Care Code Acute Board Design Engineer for Arnaud Bundy Diagnoses Atherosclerotic heart disease of [place] coronary artery with other forms of angina pectoris I25.118 Acute on chronic systolic heart failure I50.23 MONICA (acute kidney injury) N17.9 Bradycardia R00.1
[2020-04-27] VITALS (8 sets, daily range): BP systolic 117–131; BP diastolic 53–81; PULSE 68–94; RESP 20–37; TEMP 36.5–37.6; O2SAT 90–98
[2020-04-27] MEDS: hyDRALAzine 25 mg Tablet PO ×3 (00:37→16:53)
[2020-04-27] MEDS: cyclobenzaprine 10 mg Tablet 5 MG PO (00:37)
[2020-04-27] MEDS: piperacillin-tazobactam 3.375 GM in sodium chloride 0.9% (plus) 50 ML IV ×2 (05:15→16:53)
[2020-04-27 05:24] LABS: Anion Gap 16.8 (5-19); Blood Urea Nitrogen 50 mg/dL (8-23); Calcium 8.8 mg/dL (8.5-10.5); Carbon Dioxide 22 mmol/L (22-29); Chloride 105 mmol/L (98-107); Glucose 122 mg/dL (65-115); Osmolality Calculated 305 mOsm/kg (285-295); Potassium 3.8 mmol/L (3.5-5.1); Sodium 140 mmol/L (136-145)
[2020-04-27] MEDS: heparin 5,000 unit/mL INJ 1 mL 5000 UNIT SUBCUT ×2 (08:30→20:32)
[2020-04-27] MEDS: pantoprazole DR 40 mg Tablet PO (08:30)
[2020-04-27] MEDS: atorvastatin 40 mg Tablet 80 MG PO (08:30)
[2020-04-27] MEDS: metoprolol tartrate 25 mg Tablet 12.5 MG PO ×2 (08:30→20:32)
[2020-04-27] MEDS: clopidogrel 75 mg Tablet PO (08:30)
[2020-04-27] MEDS: aspirin 81 mg EC Tablet PO (08:30)
[2020-04-27] MEDS: azithromycin 500 MG in sodium chloride 0.9% 250 ML 250 MG IV (11:31)
--- NOTE | 2020-04-27 11:35 | P.PN_ITS ---
Subjective Subjective: Interval history: Aleja awakens easily. She appears anxious. No chest pain. Some back pain which she states she always has. Medications: Reviewed: Yes Vitals/I&O/Wt Last Vital Signs Temp 99.7 F H 04/27/20 11:01 Pulse 76 04/27/20 11:01 Resp 20 H 04/27/20 11:01 BP 131/63 04/27/20 11:01 Pulse Ox 96 04/27/20 11:01 04/26/20 04/27/20 04/27/20 22:59 06:59 14:59 Intake Total 410 / 950 220 / 1170 50 / 50 Output Total 1000 / 1000 500 / 1500 Balance -590 / -50 -280 / -330 50 / 50 Weight last 48 hrs Weight 70.307 kg Physical Exam Narrative: EXAM NARRATIVE: General exam is no apparent distress Cardiovascular regular rate and rhythm without murmur Lungs few crackles bibasilar Abdomen is soft nontender with positive bowel sounds Extremities no cyanosis clubbing or edema Urinary Catheter Management^: Junior Latex: Cath Placed During This Visit: yes Reason for Continuing Indwelling Catheter: Accurate Measurement of Urinary Output in Critically Ill Patients Urinary Catheter Date of Insertion: 04/23/20 Urinary Catheter Time of Insertion: 10:23 Data : 04/26/20 04:28 04/27/20 04:16 A&P Assessment and plan (1) Acute respiratory failure with hypoxia: Acute hypoxic respiratory failure secondary to decompensated systolic heart failure//pneumonia Initially required BiPAP. Now down to 2 L. Status: Acute (2) CHF exacerbation: Lasix on hold. Continue fluid restriction 330 cc out yesterday. Echo demonstrated EF of 20 to 25%, 2/4 diastolic dysfunction Hold Lasix again today. Creatinine slightly improved I expect if creatinine continues to slightly improve could consider restarting oral Lasix tomorrow and discharge to skilled care. I discussed with her family the risk for readmission, worsening is high and prognosis poor. They will consider no rehospitalization. Status: Acute Qualifiers: Heart failure type: unspecified Qualified Code(s): I50.9 - Heart failure, unspecified (3) NSTEMI (non-ST elevated myocardial infarction): Continue medical treatment with beta-tosha, statin, aspirin, Plavix Status: Acute (4) Hypertension: Continue metoprolol tartrate 12.5 mg every 12 hours daily as well as hydralazine 25 mg every 8 hours daily. Status: Acute Additional A&P Information Pneumonia. Currently on azithromycin, Zosyn. Discontinue azithromycin. Await MRSA PCR Acute kidney injury, superimposed on chronic kidney disease at least stage II. Hold diuresis today Elevated glucose. Check hemoglobin A1c. Consistent carb diet. Heparin for DVT prophylaxis Allow natural Likely discharge to nursing facility tomorrow if renal function continues to improve. Attestations Medical Necessity Statement*: Needs continued hospitalization for IV antibiotics secondary to pneumonia. Coding Level of Care Code Acute Regional Marketing Manager for Arnaud Herrerad Diagnoses Acute respiratory failure with hypoxia J96.01 CHF exacerbation I50.9 Heart failure type: unspecified NSTEMI (non-ST elevated myocardial infarction) I21.4 Hypertension I10
--- NOTE | 2020-04-27 16:49 | PC.NURSE ---
Patient visitor at bedside reports patient son Jose was allowed to come in a few days ago spoke with Dr Verdin about this matter Dr Verdin okayed family member to come in to see patient due to conversation between Doctor and family about non hospital readmission and patient being a candidate for hospice cares doctor approved visitor due to patient condition.
[2020-04-27] MEDS: acetaminophen 325 mg Tablet 650 MG PO (16:52)
[2020-04-27] MEDS: lanolin oint 7 gm 1 APPLIC TOPICAL (16:53)
--- NOTE | 2020-04-27 19:51 | PC.NURSE ---
Rounding: Patient resting in bed resting with eyes closed easily awakened. Patient denies any complaints or pain at this time. Will continue to monitor.
--- NOTE | 2020-04-27 20:25 | ECG_ITS ---
[facility] Test Date: 2020-04-27 Pat Name: Aleja Souza Department: Room: 105 Gender: Female Photographer'S Assistant: seth GONZALEZB: 1935 Requested By: Janeth Carranza Order Number: [id number] Sophia MD: Cruz Hu M.D. Measurements Intervals [place] Rate: 83 P: 5 IA: 175 QRS: -17 QRSD: 85 T: 46 QT: 386 QTc: 456 Interpretive Statements SINUS RHYTHM LOW QRS VOLTAGE IN PRECORDIAL LEADS [QRS DEFLECTION < 1.0 mV IN CHEST LEADS] INFERIOR MYOCARDIAL INFARCTION [40+ ms Q WAVE AND/OR ST/T ABNORMALITY IN II/aVF], PROBABLY OLD Possible recent septal [place] MODERATE T-WAVE ABNORMALITY, CONSIDER ANTERIOR ISCHEMIA [-0.1+ mV T WAVE IN V3/V4] Compared to ECG 04/21/2020 04:33:17 Low QRS voltage now present Myocardial infarct finding now present First degree AV block no longer present T-wave abnormality still present Possible ischemia still present Electronically Signed On 04-28-2020 19:19:20 CDT by Cruz Hu M.D. [email or web address]
[2020-04-27] MEDS: ALPRAZolam 0.25 mg Tablet PO (20:32)
--- NOTE | 2020-04-27 20:39 | PC.NURSE ---
Patient complaint of chest pain felt like an something was sitting on her. Patient wanted her bipap put on. Bipap placed. EKG ordered per protocol. Vitals are stable. When I went down with night time medications patient was alseep and chest pain was gone per patient.
--- NOTE | 2020-04-27 20:50 | PC.NURSE ---
EKG obtained and told Dr. Carranza it was available for viewing. Will await for any further orders.
[2020-04-28] VITALS (10 sets, daily range): BP systolic 111–130; BP diastolic 64–81; PULSE 68–109; RESP 20–31; TEMP 36.3–37.1; O2SAT 91–97
[2020-04-28] MEDS: cyclobenzaprine 10 mg Tablet 5 MG PO (00:22)
[2020-04-28] MEDS: hyDRALAzine 25 mg Tablet PO ×2 (00:22→08:56)
[2020-04-28 05:00] LABS: Basophils % 0.2 %; Eosinophils # 0.4 10^3/uL (0.0-0.8); Eosinophils % 2.3 %; Hematocrit 34.4 % (37.0-47.0); Hemoglobin 10.5 g/dL (11.5-15.3); Lymphocytes # 1.5 10^3/uL (0.8-4.8); Lymphocytes % 9.9 %; Mean Corpuscular HGB Conc 30.5 g/dL (30.0-36.0); Mean Corpuscular Hemoglobin 27.9 pg (28.0-34.0); Mean Corpuscular Volume 91.2 fL (81-99); Mean Platelet Volume 11.4 fL (7.4-10.4); Monocytes # 1.5 10^3/uL (0.2-0.9); Monocytes % 9.9 %; Neutrophils # 11.88 10^3/uL (1.8-7.7); Neutrophils % 77.2 %; Nucleated Red Blood Cells % 0 %; Platelet Count 278 10^3/cmm (130-400); Red Blood Count 3.77 10^6/uL (4.1-5.3); White Blood Count 15.4 10^3/uL (4.0-10.0)
[2020-04-28] MEDS: piperacillin-tazobactam 3.375 GM in sodium chloride 0.9% (plus) 50 ML IV (05:03)
[2020-04-28 05:25] LABS: Anion Gap 15.6 (5-19); Blood Urea Nitrogen 36 mg/dL (8-23); Calcium 8.6 mg/dL (8.5-10.5); Carbon Dioxide 21 mmol/L (22-29); Chloride 106 mmol/L (98-107); Glucose 129 mg/dL (65-115); Osmolality Calculated 298 mOsm/kg (285-295); Potassium 3.6 mmol/L (3.5-5.1); Sodium 139 mmol/L (136-145)
--- NOTE | 2020-04-28 05:26 | PC.NURSE ---
End of shift : patient has rested off and on this evening. Patient has wore her bipap off and on. Otherwise remains alert and oriented. Patient turns herself in bed. Patient has had a uneventful shift and vitals are stable.
[2020-04-28] MEDS: ALPRAZolam 0.25 mg Tablet PO ×2 (06:20→15:30)
[2020-04-28] MEDS: ondansetron 2 mg/ML SDV 2 mL 4 MG IVP (06:40)
[2020-04-28] MEDS: metoprolol tartrate 25 mg Tablet 12.5 MG PO (08:56)
[2020-04-28] MEDS: aspirin 81 mg EC Tablet PO (08:56)
[2020-04-28] MEDS: pantoprazole DR 40 mg Tablet PO (08:56)
[2020-04-28] MEDS: atorvastatin 40 mg Tablet 80 MG PO (08:56)
[2020-04-28] MEDS: heparin 5,000 unit/mL INJ 1 mL 5000 UNIT SUBCUT (08:57)
[2020-04-28] MEDS: clopidogrel 75 mg Tablet PO (08:57)
--- NOTE | 2020-04-28 10:51 | PC.NURSE ---
Dr delatorre for rounding and assessment as well as discussion of care. Dr will speak with family about further care needs verbal instructions given to give 40mg PO lasix x1 now
[2020-04-28] MEDS: FUROsemide 40 mg Tablet PO (11:55)
--- NOTE | 2020-04-28 11:55 | PC.NURSE ---
This nurse called to bedside be RT reports patient was in distress and yelling out. reported o2 saturation 86 on 3L nc patient plced on bi pap by RT patient is calm with bi pap in place upon this nurse entering room ordered lasix given lungs are diminshed with faint crackles.
--- NOTE | 2020-04-28 13:18 | PM.DCS ---
Discharge Providers Date of Admission: 04/20/20 23:39 Date of Discharge: April 28, 2020 Attending Provider at Admission: Bertha Mauro MD Attending Provider at Discharge: Mick Verdin MD Primary Care Provider: Joe Collado MD Diagnoses at Discharge Discharge Diagnosis (1) Acute respiratory failure with hypoxia: Status: Acute (2) CHF exacerbation: Status: Acute Qualifiers: Heart failure type: unspecified Qualified Code(s): I50.9 - Heart failure, unspecified (3) NSTEMI (non-ST elevated myocardial infarction): Status: Acute (4) Hypertension: Status: Acute Reason for Visit Reason for Visit: RESP DISTRESS Hospital Course Hospital Course: Aleja is an 84-year-old nursing facility patient who presented to the hospital with shortness of breath. He was diagnosed with a non-ST elevation myocardial infarction, acute systolic heart failure, and acute kidney injury. Cardiology was consulted. Diuresis initiated. Cardiology discussed with the family her current situation, and the decision was made to proceed with medical management only. Note that she was allow natural . Throughout her hospital stay she had some worsening renal function. She developed concern for pneumonia and was placed on broad-spectrum antibiotics. Echocardiogram was obtained which demonstrated a low EF of 20 to 25%. At the end of her hospital stay she showed gradual improvement but was still very weak, and short of breath with any exertion. On the last day of her hospitalization she was on 2 L per nasal cannula, with stable vital signs. Creatinine had decreased to 1.7. I discussed with her family her current clinical course, and she was discharged back to the longterm. They indicated, that should she worsen they would want her to do comfort measures only, and not be rehospitalized. For that reason morphine and Ativan were written should her condition deteriorate which I think is likely. She will finish a short course of Augmentin. Physical Exam Narrative: EXAM NARRATIVE: General exam no apparent distress Cardiovascular regular rate and rhythm Lungs diminished breath sounds bilaterally right greater than left Abdomen is soft nontender with positive bowel sounds Extremities no cyanosis clubbing or edema Urinary Catheter Management^: Junior Latex: Cath Placed During This Visit: yes Reason for Continuing Indwelling Catheter: Accurate Measurement of Urinary Output in Critically Ill Patients Urinary Catheter Date of Insertion: 04/23/20 Urinary Catheter Time of Insertion: 10:23 Discharge Data Data Completed and Pending: Completed Studies During Hospitalization Category Date Time Status XR chest 1V prudence ble [id number] Routine Exams 04/23/20 09:20 Completed XR chest 1V prudence ble [id number] Stat Exams 04/24/20 04:39 Completed XR chest 1V prudence ble [id number] Urgent Exams 04/20/20 21:51 Completed CV echo complete* [id number] Routine Ultrasound 04/21/20 02:12 Completed US venous duplex lower extremity bi lat [CV venous Ultrasound 04/21/20 12:45 [place] [id number]] Routine Labs from last 24 hours 04/28/20 04/28/20 04:26 04:26 WBC 15.4 H RBC 3.77 L Hgb 10.5 L Hct 34.4 L MCV 91.2 MCH 27.9 L MCHC 30.5 RDW 15.0 Plt Count 278 MPV 11.4 H Neut % (Auto) 77.2 Lymph % (Auto) 9.9 [place] % (Auto) 9.9 Eos % (Auto) 2.3 Baso % (Auto) 0.2 Neut # (Auto) 11.88 H Lymph # (Auto) 1.5 [place] # (Auto) 1.5 H Eos # (Auto) 0.4 Baso # (Auto) 0.0 Nucleated RBC % (a uto) 0 Nucleated RBCs # 0.0 Sodium 139 Potassium 3.6 Chloride 106 Carbon Dioxide 21 L Anion Gap 15.6 BUN 36 H Creatinine 1.7 H GFR Calculation Not Reportable Glucose 129 H Calculated Osmolal ity 298 H Calcium 8.6 Vitals: Last Vital Signs Temp 98.2 F 04/28/20 10:54 Pulse 90 04/28/20 11:46 Resp 30 H 04/28/20 10:54 BP 111/64 04/28/20 10:54 Pulse Ox 95 04/28/20 11:46 Discharge Plan Discharge Patient Disposition: Xfer SNF Condition: Stable Prescriptions: New morphine concentrate 100 mg/5 mL (20 mg/mL) solution 5 mg PO Q2H PRN (Reason: pain) Qty: 30 RF: 0 Ativan 2 mg/mL solution 1 mg BUCCAL Q4H PRN (Reason: anxiety) Qty: 10 RF: 0 atorvastatin 40 mg Tablet 80 mg PO DAILY Qty: 60 RF: 0 clopidogrel 75 mg Tablet 75 mg PO DAILY Qty: 30 RF: 0 metoprolol tartrate 25 mg Tablet 12.5 mg PO Q12H Qty: 30 RF: 0 furosemide [Lasix] 40 mg tablet 40 mg PO QAM Qty: 30 RF: 0 amoxicillin-pot clavulanate [Augmentin] 875-125 mg tablet 1 tab PO BID Qty: 10 RF: 0 hydralazine 25 mg Tablet 25 mg PO Q8H Qty: 90 RF: 0 Continued Miralax 17 gram Powder In Packet 17 g PO DAILY PRN (Reason: Constipation) RF: 0 Zofran 4 mg Tablet 2 mg PO BID PRN (Reason: Nausea) RF: 0 aspirin 81 mg Tablet,Delayed Release (Dr/Ec) 81 mg PO DAILY RF: 0 Tylenol Extra Strength 500 mg Tablet 500 mg PO Q6H PRN (Reason: Pain) RF: 0 Xanax 0.25 mg Tablet 0.25 mg PO BID PRN (Reason: Anxiety) RF: 0 Milk of Magnesia 400 mg/5 mL Suspension 400 mg PO DAILY PRN (Reason: constipation) RF: 0 Dulcolax (bisacodyl) 10 mg Suppository 10 mg DC DAILY PRN (Reason: Constipation) RF: 0 paroxetine HCl 20 mg Tablet 20 mg PO DAILY RF: 0 Protonix 40 mg Tablet,Delayed Release (Dr/Ec) 40 mg PO DAILY RF: 0 Pepto-Bismol 262 mg/15 mL Suspension 524 mg PO Q4H PRN (Reason: Diarrhea) RF: 0 Antacid 200-200-20 mg/5 mL Suspension 5 ml PO Q6H PRN (Reason: Heartburn) RF: 0 nystatin 100,000 unit/gram Powder 1 applic TOPICAL BID PRN (Reason: rash) RF: 0 Flonase Allergy Relief 50 mcg/actuation [place],Suspension 1 spray INTRANASAL DAILY PRN (Reason: Congestion) RF: 0 cyclobenzaprine 5 mg Tablet 5 mg PO TID PRN (Reason: Pain) RF: 0 Discontinued carvedilol 25 mg Tablet 25 mg PO BID RF: 0 amlodipine 5 mg Tablet 5 mg PO BID RF: 0 simvastatin 20 mg Tablet 20 mg PO DAILY RF: 0 Discharge Orders: Discharge Order (Routine); Ordered 04/28/20 Ordered By: Mick Verdin Discharge Diet: Cardiac Discharge Activity: Increase activity as tolerated Activity Restrictions/Additional Instructions: Oxygen 2 L per nasal cannula titrate for sat greater than or equal to 92% Patient's family indicates they do not want her rehospitalized. Continue current medications, but should she worsen significantly family wishes her to be made comfort. 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
--- NOTE | 2020-04-28 13:25 | P.PN_ITS ---
Subjective Subjective: Interval history: Patient is feeling okay. No chest pain. Still has significant shortness of breath with activities. No fever or chills. Medications: Reviewed: Yes Medication Review Details: Current Medications Acetaminophen (Tylenol) 650 mg PO Q6H PRN PRN Reason: MILD PAIN Last Admin: 04/27/20 16:52 Dose: 650 mg Documented by: Albuterol/Ipratropium (Duoneb) 3 ml INHALATION Q6H PRN PRN Reason: SHORTNESS OF BREATH Last Admin: 04/24/20 04:14 Dose: 3 ml Documented by: Alprazolam (Xanax) 0.25 mg PO TID PRN PRN Reason: Anxiety Last Admin: 04/28/20 06:20 Dose: 0.25 mg Documented by: Aspirin (Aspirin Ec) 81 mg PO DAILY [facility] Last Admin: 04/28/20 08:56 Dose: 81 mg Documented by: Atorvastatin Calcium (Lipitor) 80 mg PO DAILY [facility] Last Admin: 04/28/20 08:56 Dose: 80 mg Documented by: Clopidogrel Bisulfate (Plavix) 75 mg PO DAILY [facility] Last Admin: 04/28/20 08:57 Dose: 75 mg Documented by: Cyclobenzaprine HCl (Flexeril) 5 mg PO TID PRN PRN Reason: MUSCLE SPASMS Last Admin: 04/28/20 00:22 Dose: 5 mg Documented by: Furosemide (Lasix) 40 mg IVP Q12H [facility] Last Admin: 04/24/20 21:53 Dose: 40 mg Documented by: Heparin Sodium (Beef Lung) (Heparin) 5,000 unit SUBCUT Q12H [facility] Last Admin: 04/28/20 08:57 Dose: 5,000 unit Documented by: Hydralazine HCl (Apresoline) 25 mg PO Q8H [facility] Last Admin: 04/28/20 08:56 Dose: 25 mg Documented by: Piperacillin Sod/Tazobactam (Sod 3.375 gm/ Sodium Chloride) 50 mls @ 12.5 mls/hr IV Q12H [facility] Last Infusion: 04/28/20 09:10 Dose: Infused Documented by: Lanolin (Lanolin Oint) 1 applic TOPICAL PRN PRN PRN Reason: DRYNESS Last Admin: 04/27/20 16:53 Dose: 1 applic Documented by: Metoprolol Tartrate (Lopressor) 12.5 mg PO Q12H [facility] Last Admin: 04/28/20 08:56 Dose: 12.5 mg Documented by: Ondansetron HCl (Zofran) 4 mg IVP Q6H PRN PRN Reason: NAUSEA AND VOMITING Last Admin: 04/28/20 06:40 Dose: 4 mg Documented by: Pantoprazole Sodium (Protonix) 40 mg PO DAILY [facility] Last Admin: 04/28/20 08:56 Dose: 40 mg Documented by: Vitals/I&O/Wt Last Vital Signs Temp 98.2 F 04/28/20 10:54 Pulse 90 04/28/20 11:46 Resp 30 H 04/28/20 10:54 BP 111/64 04/28/20 10:54 Pulse Ox 95 04/28/20 11:46 04/27/20 04/28/20 04/28/20 22:59 06:59 14:59 Intake Total 390 / 1050 120 / 1170 50 / 50 Output Total 500 / 500 500 / 1000 Balance -110 / 550 -380 / 170 50 / 50 Weight last 48 hrs Weight 154 lb Weight 155 lb Physical Exam Narrative: EXAM NARRATIVE: GENERAL: The patient is alert and oriented times two. Not in any acute distress. HEENT: Mild pallor. No icterus or lymphadenopathy. NECK: Trachea appears to be central. No masses noted. No JVD or thyromegaly appreciated. RESPIRATORY: Chest is symmetrical. No intercostals muscle retraction or any accessory muscle activation. There is no chest wall tenderness. Breath sounds are heard bilaterally. Diminished intensity of breath sounds in the bases BREASTS: Deferred. HEART: The heart sounds are normal. No S3 or S4. Systolic murmur in the left sternal border and in the mitral area. Short systolic murmur in the left sternal border. no pericardial rub ABDOMEN: No vessel pulsations or distention. No tenderness. No organomegaly appreciated. Bowel sounds are normally heard. : Deferred. RECTAL: Deferred. LYMPHATIC: No lymphadenopathy noted in the neck or groin. EXTREMITIES: No edema or cyanosis. No clubbing. MUSCULOSKELETAL: No acute joint deformities or swelling SKIN: There are no significant rashes or ecchymosis NEUROPSYCHIATRIC: The patient is alert and oriented x2. Appears to be in a good mood. No tremors or rigidity noted. Urinary Catheter Management^: Junior Latex: Cath Placed During This Visit: yes Reason for Continuing Indwelling Catheter: Accurate Measurement of Urinary Output in Critically Ill Patients Urinary Catheter Date of Insertion: 04/23/20 Urinary Catheter Time of Insertion: : Data : 04/28/20 04:26 04/28/20 04:26 Other Labs: Laboratory Last Values WBC 15.4 10^3/uL (4.0-10.0) H 04/28/20 04:26 RBC 3.77 10^6/uL (4.1-5.3) L 04/28/20 04:26 Hgb 10.5 g/dL (11.5-15.3) L 04/28/20 04:26 Hct 34.4 % (37.0-47.0) L 04/28/20 04:26 MCV 91.2 fL (81-99) 04/28/20 04:26 MCH 27.9 pg (28.0-34.0) L 04/28/20 04:26 MCHC 30.5 g/dL (30.0-36.0) 04/28/20 04:26 RDW 15.0 % (12.1-15.1) 04/28/20 04:26 Plt Count 278 10^3/cmm (130-400) 04/28/20 04:26 MPV 11.4 fL (7.4-10.4) H 04/28/20 04:26 Neut % (Auto) 77.2 % 04/28/20 04:26 Lymph % (Auto) 9.9 % 04/28/20 04:26 Henry % (Auto) 9.9 % 04/28/20 04:26 Eos % (Auto) 2.3 % 04/28/20 04:26 Baso % (Auto) 0.2 % 04/28/20 04:26 Neut # (Auto) 11.88 10^3/uL (1.8-7.7) H 04/28/20 04:26 Lymph # (Auto) 1.5 10^3/uL (0.8-4.8) 04/28/20 04:26 Henry # (Auto) 1.5 10^3/uL (0.2-0.9) H 04/28/20 04:26 Eos # (Auto) 0.4 10^3/uL (0.0-0.8) 04/28/20 04:26 Baso # (Auto) 0.0 10^3/uL (0.0-0.1) 04/28/20 04:26 Nucleated RBC % (auto) 0 % 04/28/20 04:26 Nucleated RBCs # 0.0 /100WBC 04/28/20 04:26 APTT 53.8 SECONDS (23.9-36.7) H 04/23/20 08:05 Fibrinogen 633 mg/dL (174-498) H 04/20/20 22:33 D-Dimer 1.18 ug/mIFEU (0-0.59) H 04/20/20 22:35 Specimen Type Arterial 04/20/20 22:03 Sample Site Brachial, right 04/20/20 22:03 ABG pH 7.36 (7.35-7.45) 04/20/20 22:03 ABG pCO2 33.3 mmHg (35-45) L 04/20/20 22:03 ABG pO2 69.7 mmHg (80.0-100.0) L 04/20/20 22:03 ABG HCO3 19.0 mmol/L (22-26) L 04/20/20 22:03 ABG Base Excess -5.6 mmol/L (-2.0-2.0) L 04/20/20 22:03 Rupesh Test N/a 04/20/20 22:03 Hematocrit 35.2 % (37-47) L 04/20/20 22:03 Hgb O2 Saturation 92.8 % (95-100) L 04/20/20 22:03 Carboxyhemoglobin 1.0 %THgb (0.4-20.1) 04/20/20 22:03 Methemoglobin 0.8 % (0.4-1.5) 04/20/20 22:03 Total Hemoglobin 11.5 g/dL (12-16) L 04/20/20 22:03 O2 Delivery Device Bipap 04/20/20 22:03 FiO2 55.0 % 04/20/20 22:03 Medical Insurance Coder ID Harkr 04/20/20 22:03 Sodium 139 mmol/L (136-145) 04/28/20 04:26 Potassium 3.6 mmol/L (3.5-5.1) 04/28/20 04:26 Chloride 106 mmol/L (98-107) 04/28/20 04:26 Carbon Dioxide 21 mmol/L (22-29) L 04/28/20 04:26 Anion Gap 15.6 (5-19) 04/28/20 04:26 BUN 36 mg/dL (8-23) H 04/28/20 04:26 Creatinine 1.7 mg/dL (0.5-0.9) H 04/28/20 04:26 GFR Calculation Not Reportable 04/28/20 04:26 Glucose 129 mg/dL (65-115) H 04/28/20 04:26 Estimat Average Glucose 126 04/25/20 04:10 Hemoglobin A1c 6.0 % (4.0-6.0) 04/25/20 04:10 Calculated Osmolality 298 mOsm/kg (285-295) H 04/28/20 04:26 Calcium 8.6 mg/dL (8.5-10.5) 04/28/20 04:26 Magnesium 1.8 mg/dL (1.7-2.3) 04/22/20 03:35 Total Bilirubin 0.4 mg/dL (0.15-1.2) 04/26/20 04:28 Direct Bilirubin 0.20 mg/dL (0.00-0.30) 04/22/20 03:35 AST 13 U/L (0-32) 04/26/20 04:28 ALT 12 U/L (0-33) 04/26/20 04:28 Alkaline Phosphatase 55 IU/L (35-105) 04/26/20 04:28 Troponin T Baseline 476 ng/L (0-10) H* 04/20/20 22:33 Troponin T 120 Minute 471.5 ng/L (0-10) H 04/21/20 00:58 Delta Troponin T -4.5 ABS# (0-10) L 04/21/20 00:58 Troponin T Hi Sens 6Hr 459.7 ng/L (0-10) H 04/21/20 04:15 Troponin T Hi Sens 6Hr Delta -16.3 ng/L (0-12) L 04/21/20 04:15 C-Reactive Protein 29.7 mg/L (0.0-4.9) H 04/20/20 21:58 NT-Pro-B Natriuret Pep 19973 pg/mL (0-450) H 04/20/20 21:58 Total Protein 5.7 g/dL (6.6-8.7) L 04/26/20 04:28 Albumin 3.2 g/dL (3.5-5.2) L 04/26/20 04:28 Globulin 2.5 g/dL (1.3-4.6) 04/26/20 04:28 TSH 1.63 uIU/mL (0.27-4.20) 04/21/20 04:15 Nasal/Oral COVID-19 PCR Negative 04/21/20 01:37 SARS-CoV-2 Ag (Rapid) Negative (Negative) 04/20/20 22:23 Micro: Microbiology 04/26/20 10:30 MRSA Culture - Final Nose A&P Assessment and plan (1) Atherosclerotic heart disease of [place] coronary artery with other forms of angina pectoris: Continue on the current medications. In view of the patient's multiple comorbid conditions and high risk status, optimizing the medical treatment is the plan of action. May continue on the current medications for the time being. Status: Acute (2) Acute on chronic systolic heart failure: Clinically the heart failure is compensated. Continue on the current medicines Status: Acute (3) MONICA (acute kidney injury): Creatinine seems to be slowly going up. Status: Acute (4) Bradycardia: Patient has no documented symptomatic bradycardia. Continue monitoring on telemetry. Status: Acute (5) Ischemic cardiomyopathy: Patient here he has a higher risk for malignant ventricular arrhythmia . Family has decided to keep the patient DNR status. May continue on the current medications Status: Acute Additional A&P Information Other problems are Possible pneumonia Mild anemia Cardiovascular status seems fairly stable. May continue on the current medications. Discussed with Dr. Verdin today. Since the patient's overall cardiovascular status seems to be stable, it may be appropriate to discharge her back to the retirement. Family has decided not to subject the patient through any aggressive measures. This will be appropriate. Attestations Medical Necessity Statement*: Possible discharge home today. 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
--- NOTE | 2020-04-28 15:45 | PC.NURSE ---
1415 called report to Taylor Rousseau LPN at [facility] 1430 contacted sofia daughter in-law with POC for patient and eta of patient to group home.
--- NOTE | 2020-04-28 16:00 | PC.NURSE ---
Patient discharge to sn[facility] at this time patient alert oriented and in stable condition patient transferred to [facility] for transport by staff all belongings and proper paper work sent with patient
== END 2020-04-28 16:00 | disposition skilled nursing facility (03) | DRG 280 ==
LOC: ER 22:32 → CSU 04-21 00:05
PROVIDERS: Emergency Medicine; Internal Medicine; Internal Medicine Cardiovascular Disease; Admitting Provider Internal Medicine; Family Provider Family Medicine; PCP Family Medicine; Visit Provider Internal Medicine
DX: I21.4 Non-ST elevation (NSTEMI) myocardial infarction (principal); I50.23 Acute on chronic systolic (congestive) heart failure; J96.01 Acute respiratory failure with hypoxia; J18.9 Pneumonia, unspecified organism; I13.0 Hypertensive heart and chronic kidney disease with heart failure and stage 1 through stage 4 chronic kidney disease, or unspecified chronic kidney disease; N17.9 Acute kidney failure, unspecified; N18.2 Chronic kidney disease, stage 2 (mild); I25.2 Old myocardial infarction; Z86.73 Personal history of transient ischemic attack (TIA), and cerebral infarction without residual deficits; F41.8 Other specified anxiety disorders; Z66 Do not resuscitate; E78.5 Hyperlipidemia, unspecified; I24.9 Acute ischemic heart disease, unspecified; K21.9 Gastro-esophageal reflux disease without esophagitis; G89.29 Other chronic pain; R53.82 Chronic fatigue, unspecified; F03.90 Unspecified dementia, unspecified severity, without behavioral disturbance, psychotic disturbance, mood disturbance, and anxiety; E87.6 Hypokalemia; I25.5 Ischemic cardiomyopathy; I25.118 Atherosclerotic heart disease of native coronary artery with other forms of angina pectoris; Z79.82 Long term (current) use of aspirin
CPT/HCPCS: 12345; 36415; 36600; 51702; 71045; 80048; 80053; 80076; 82805; 83036; 83735; 83880; 84443; 84484; 85025; 85049; 85378; 85384; 85730; 86140; 87426; 87635; 87641; 93005; 93306; 93970; 94640; 94660; 96372; 96375; 97110; 97162; 97530; 99283; C9113; J0456; J1100; J1644; J1940; J2020; J2060; J2270; J2405; J2543; J2930; J3490; J7050